=== PATIENT | male | born 1960 | race Hispanic/Latino ===

== ENCOUNTER 2018-08-06 02:12 | Inpatient (IN) | payer OTHER ==
[2018-08-06] MEDS ORDERED: Sodium Chloride 0.9% 1,000 ML IV STA ×2 (03:28→03:48)
[2018-08-06] MEDS ORDERED: Morphine 4 MG/ML VIAL IVP ONE ×3 (03:29→06:43)
[2018-08-06] MEDS ORDERED: Iohexol 240 (50 ml) PO ONE (03:30)
[2018-08-06] MEDS ORDERED: Iohexol 240 (50 ml) ONE (03:41)
[2018-08-06 03:42] LABS: BASO # 0.1 K/uL (0.0-0.2); BASO % 0.4 % (0.0-2.0); EOS # 0.5 K/uL (0.0-0.7); EOS % 2.8 % (0.0-4.0); HEMOGLOBIN 16.9 g/dL (12.0-18.0); LYMPH # 2.3 K/uL (1.0-4.3); LYMPH % 13.7 % (20.0-40.0); MEAN CELL VOLUME 92.1 fl (80.0-94.0); MEAN CORPUSCULAR HGB CONC 32.5 g/dL (33.0-37.0); MEAN PLATELET VOLUME 10.1 fl (7.2-11.7); MONO % 6.3 % (0.0-10.0); NEUT # 12.6 K/uL (1.8-7.0); NEUT % 76.8 % (50.0-75.0); NRBC % 0.1 % (0.0-0.0); RBC 5.63 Mil/uL (4.40-5.90); RED CELL DISTRIBUTION WIDTH 13.7 % (11.5-14.5); WHITE BLOOD COUNT 16.5 K/uL (4.8-10.8)
[2018-08-06 03:47] LABS: PROTHROMBIN TIME 11.1 Seconds (9.8-13.1)
[2018-08-06 03:50] LABS: PARTIAL THROMBOPLASTIN TIME 30.6 Seconds (25.6-37.1)
[2018-08-06 03:56] LABS: ALB/GLOB RATIO 1.2 (1.0-2.1); ALBUMIN 4.1 g/dL (3.5-5.0); ALT/SGPT 46 U/L (21-72); AST/SGOT 45 U/L (17-59); BLOOD UREA NITROGEN 29 mg/dl (9-20); GFR NON-AFRICAN AMERICAN 41
[2018-08-06] MEDS ORDERED: Morphine 4 MG/ML VIAL ONE ×2 (04:29→06:44)
[2018-08-06] MEDS ORDERED: Sodium Chloride 0.9% 50 ML IV ONE (05:29)
[2018-08-06] MEDS ORDERED: Iohexol 300 100 ML IJ ONE (05:29)
--- NOTE | 2018-08-06 06:29 | ED PDOC ---
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 Patient states pain is currently 7/10 and worsen with movement or change in position. He denies any fever, chills, vomiting, diarrhea, cough, or shortness of breath. PCP: none provided Past Medical History Reviewed: Historical Data, Nursing Documentation, Vital Signs Vital Signs: Last Vital Signs Temp 98.6 F 08/06/18 03:19 Pulse 60 08/06/18 04:39 Resp 18 08/06/18 04:39 BP 112/67 08/06/18 04:39 Pulse Ox 97 08/06/18 04:39 - Medical History PMH: Asthma, HTN - Surgical History Surgical History: Tonsillectomy - Family History Family History: States: Unknown Family Hx - Home Medications Home Medications: Ambulatory Orders Medication Instructions Recorded Albuterol Sulfate [Proair Hfa] 90 mcg PRN 08/06/18 RX: Lisinopril [Zestril] 10 mg PO DAILY 08/06/18 - Allergies Allergies/Adverse Reactions: Allergies Allergy/AdvReac Type Severity Reaction Status Date / Time No Known Allergies Allergy Verified 08/06/18 03:21 Review of Systems ROS Statement: Except As Marked, All Systems Reviewed And Found Negative Constitutional: Positive for: Weakness. Negative for: Fever, Chills Cardiovascular: Positive for: Chest Pain Respiratory: Negative for: Cough, Shortness of Breath Gastrointestinal: Positive for: Nausea, Abdominal Pain (upper). Negative for: Vomiting, Diarrhea Neurological: Positive for: Dizziness (lightheaded) Physical Exam - Reviewed Nursing Documentation Reviewed: Yes Vital Signs Reviewed: Yes - Physical Exam Appears: Positive for: Uncomfortable Head Exam: Positive for: ATRAUMATIC, NORMAL INSPECTION, NORMOCEPHALIC Skin: Positive for: Normal Color Eye Exam: Positive for: Normal appearance ENT: Positive for: Normal ENT Inspection Neck: Positive for: Normal Cardiovascular/Chest: Positive for: Regular Rate, Rhythm, Chest Non Tender Respiratory: Positive for: Normal Breath Sounds. Negative for: Wheezing, Respiratory Distress Gastrointestinal/Abdominal: Positive for: Soft, Tenderness (epigastric), Distended (mild) Back: Positive for: Normal Inspection. Negative for: L CVA Tenderness, R CVA Tenderness Extremity: Positive for: Normal ROM (upper/lower) Neurologic/Psych: Positive for: Alert, Oriented. Negative for: Motor/Sensory Deficits - Laboratory Results Result Diagrams: 08/06/18 03:30 08/06/18 03:30 - ECG O2 Sat by Pulse Oximetry: 97 (RA) Pulse Ox Interpretation: Normal Medical Decision Making Medical Decision Making: Initial Impression: 57 year old male with abdominal pain and disten tion. Initial Plan: * CT ABD/pelvis with PO and IV contrast * EKG * Labs * CXR * Morphine 4mg IVP * IV fluids * Omnipaque 240 50ml PO * Pepcid 20mg IV * Zofran 4mg IV * Accucheck Time: 0642 --CT ABD/pelvis FINDINGS: Bilateral basilar atelectatic pulmonary changes. Mild cardiomegaly. Large, hypodense pancreas. Peripancreatic inflammatory fat stranding. Mild hepatic steatosis. 2 nonobstructing left renal stones with the largest measuring 3 mm. Uncomplicated colonic diverticulosis. Mild constipation. Mild prostatomegaly. Mild thickening of the bladder, chronic. The liver is of uniform attenuation without mass or defect. There is no intra or extrahepatic biliary ductal dilatation. The spleen is normal. The gallbladder is within normal limits. There is no evidence of adrenal mass. Both kidneys demonstrate prompt and equal nephrograms. The kidneys are normal in size, shape and configuration. There is no evidence of renal or ureteral mass. No right renal or ureteral calculi are identified. There is no hydroureter or hydronephrosis. No evidence for appendicitis. There is no bowel wall thickening. No evidence for small or large bowel obstruction. There is no evidence of intrinsic or extrinsic bladder mass. Images of the lung bases show no evidence of pleural or parenchymal mass. There are no pleural effusions. The bony structures are free of lytic or blastic lesions. IMPRESSION: Bilateral basilar atelectatic pulmonary changes. Mild cardiomegaly. Large, hypodense pancreas. Peripancreatic inflammatory fat stranding. Mild hepatic steatosis. 2 nonobstructing left renal stones with the largest measuring 3 mm. Uncomplicated colonic diverticulosis. Mild constipation. Mild prostatomegaly. Mild thickening of the bladder, chronic. Time: 0700 --Patient is signed out to Dr. Alvarez, pending lipase results and re-evaluation. Scribe Attestation: Documented by Frances Menezes, acting as a scribe for Sadiq Tsang MD. Provider Scribe Attestation: All medical record entries made by the Scribe were at my direction and personally dictated by me. I have reviewed the chart and agree that the record accurately reflects my personal performance of the history, physical exam, medical decision making, and the department course for this patient. I have also personally directed, reviewed, and agree with the discharge instructions and disposition. Disposition - Clinical Impression Clinical Impression: Pancreatitis, Renal insufficiency - Disposition Disposition Time: 07:00 Condition: GUARDED Patient Signed Over To: Flako Alvarez
[2018-08-06] MEDS ORDERED: Lactated Ringer's 1,000 ML IV STA (06:46)
--- NOTE | 2018-08-06 07:21 | ED PDOC ---
- Laboratory Results Result Diagrams: 08/06/18 03:30 08/06/18 03:30 Interpretation Of Abn Labs: 16.5 wbc, lipase elevated, 29/1.7 bun/cr - ECG O2 Sat by Pulse Oximetry: 97 (RA) Pulse Ox Interpretation: Normal - CT Scan/US ct Other Rad Studies (CT/US): Read By Radiologist Other Rad Interpretation: pancreatic enlargement - Progress ED Course And Treament: 756: Will give pt. duoneb as he feels wheezes. Has hx of asthma. Dr. Armen sotelo paged for consult. 812: Spoke with Dr. Barnett. Will admit ICU. Spoke with Dr. Bailon. Will admit ICU. 907: Spoke with Dr. Bynum. Agrees with current care. No additional information. - Critical Care Total Time (In Min): 30 Documented Critical Care: Time excludes all time spent performint seperately billable procedures Medical Decision Making Medical Decision Making: Time: 0700 -- Patient with possible pancreatitis endorsed to me by Dr. Tsang, pending lipase, re-evaluation and possible ER disposition. Scribe Attestation: Documented by Bishop Singleton, acting as a scribe for Flako Alvarez MD. Provider Scribe Attestation: All medical record entries made by the Scribe were at my direction and personally dictated by me. I have reviewed the chart and agree that the record accurately reflects my personal performance of the history, physical exam, medical decision making, and the department course for this patient. I have also personally directed, reviewed, and agree with the discharge instructions and disposition. Disposition - Clinical Impression Clinical Impression: Pancreatitis, Renal insufficiency - POA Present On Arrival: None - Disposition Disposition: Admitted as In-Patient Disposition Time: 08:15 Condition: SERIOUS
[2018-08-06 07:51] LABS: LIPASE 30221 U/L (23-300)
[2018-08-06] MEDS ORDERED: Albuterol-Ipratrop 3 mg / 0.5 (3 ml) UD INH STA (07:53)
[2018-08-06] MEDS ORDERED: Albuterol-Ipratrop 3 mg / 0.5 (3 ml) UD ONE (07:56)
--- NOTE | 2018-08-06 08:59 | CARD ---
APPROVED REPORT Date of service: 08/06/2018 EKG Measurement Heart [id number] <Conclusion> Atrial fibrillation with slow ventricular response with a competing junctional pacemaker Abnormal ECG
--- NOTE | 2018-08-06 09:02 | CP.PCM.CON ---
History of Present Illness - History of Present Illness History of Present Illness: 57 YOM came to ER for abdominal pain for lasr 12-18 hours and found to have > 30,000 lipase lavel. Pt has h/o HTN, and CKD-2, otherwise no signficant PMG. He is not a drinker, drinks rarely/socially. He saw me in [facility] recently in [facility] for CKD-2 and HTN. He is in lisinopril and and synthroid. He also injects himself with testost erone I/M prep, twice a week. Pain has been contstant, dull, no radiation. He has nausea but no vomiting or diarrhea . Review of Systems - Review of Systems Systems not reviewed;Unavailable: Acuity of Condition - Constitutional Constitutional: As Per HPI - EENT Eyes: As Per HPI - Cardiovascular Cardiovascular: As Per HPI - Respiratory Respiratory: As Per HPI - Gastrointestinal Gastrointestinal: Abdominal Pain, Belching - Musculoskeletal Musculoskeletal: As Per HPI Past Patient History - Past Medical History & Family History Past Medical History?: Yes - Past Social History Smoking Status: Never Smoked Alcohol: Social Drugs: Denies - CARDIAC Hx Hypertension: Yes - PULMONARY Hx Asthma: Yes - RENAL Hx Chronic Kidney Disease: Yes - ENDOCRINE/METABOLIC Hx Hypothyroidism: Yes Other/Comment: takes testosterone replacement RX , I/M - GASTROINTESTINAL Hx Gastrointestinal Disorders: No - GENITOURINARY/GYNECOLOGICAL Hx Genitourinary Disorders: No - PSYCHIATRIC Hx Psychophysiologic Disorder: No Hx Substance Use: No - SURGICAL HISTORY Hx Tonsillectomy: Yes Meds Allergies/Adverse Reactions: Allergies Allergy/AdvReac Type Severity Reaction Status Date / Time No Known Allergies Allergy Verified 08/06/18 03:21 Physical Exam - Head Exam Head Exam: ATRAUMATIC, NORMAL INSPECTION - Eye Exam Eye Exam: Normal appearance - ENT Exam ENT Exam: Mucous Membranes Moist - Neck Exam Neck exam: Positive for: Normal Inspection - Respiratory Exam Respiratory Exam: NORMAL BREATHING PATTERN - Cardiovascular Exam Cardiovascular Exam: REGULAR RHYTHM - GI/Abdominal Exam GI & Abdominal Exam: Guarding, Tenderness - Rectal Exam Rectal Exam: Deferred Results - Vital Signs Recent Vital Signs: Last Vital Signs Temp 98.6 F 08/06/18 03:19 Pulse 64 08/06/18 07:50 Resp 19 08/06/18 07:50 BP 153/87 H 08/06/18 07:50 Pulse Ox 97 08/06/18 08:16 - Labs Result Diagrams: 08/06/18 03:30 08/06/18 03:30 Labs: Laboratory Results - last 24 hr 08/06/18 08/06/18 08/06/18 03:30 03:30 03:30 WBC 16.5 H RBC 5.63 Hgb 16.9 Hct 51.8 H MCV 92.1 MCH 30.0 MCHC 32.5 L RDW 13.7 Plt Count 276 MPV 10.1 Neut % (Auto) 76.8 H Lymph % (Auto) 13.7 L Turner % (Auto) 6.3 Eos % (Auto) 2.8 Baso % (Auto) 0.4 Neut # (Auto) 12.6 H Lymph # (Auto) 2.3 Turner # (Auto) 1.0 H Eos # (Auto) 0.5 Baso # (Auto) 0.1 PT 11.1 INR 1.0 APTT 30.6 Sodium 143 Potassium 4.8 Chloride 106 Carbon Dioxide 27 Anion Gap 15 BUN 29 H Creatinine 1.7 H Est GFR ( Amer) 50 Est GFR (Non-Af Amer) 41 Random Glucose 131 H Lactic Acid Calcium 10.0 Total Bilirubin 0.7 AST 45 ALT 46 Alkaline Phosphatase 31 L Troponin I < 0.0120 Total Protein 7.4 Albumin 4.1 Globulin 3.3 Albumin/Globulin Ratio 1.2 Lipase 10604 H Alcohol, Quantitative < 10 08/06/18 03:35 WBC RBC Hgb Hct MCV MCH MCHC RDW Plt Count MPV Neut % (Auto) Lymph % (Auto) Turner % (Auto) Eos % (Auto) Baso % (Auto) Neut # (Auto) Lymph # (Auto) Turner # (Auto) Eos # (Auto) Baso # (Auto) PT INR APTT Sodium Potassium Chloride Carbon Dioxide Anion Gap BUN Creatinine Est GFR ( Amer) Est GFR (Non-Af Amer) Random Glucose Lactic Acid 1.8 Calcium Total Bilirubin AST ALT Alkaline Phosphatase Troponin I Total Protein Albumin Globulin Albumin/Globulin Ratio Lipase Alcohol, Quantitative Assessment & Plan - Assessment and Plan (Free Text) Assessment: ACUTE Pancreatitis : cause not know, could be related to I/M testoseteron prepararion he injects himself twice weekly. HTN Hypothyroidism JEFF: pre-renal azotemia CKD-3 Plan: Hemodynamically stable but duet to very high lipase level and risk for complication/shock, will admit to ICU for 24 hour, pending GI evaluation. Will wait for official reading of CT abdomen to decide about surgical consult Admit to ICD IVF: RL at 100 cc/h IV dilaudid for pain Empirical antibiotics: Cefepime and flagyl. GI consult.
[2018-08-06] MEDS ORDERED: Lactated Ringer's 1,000 ML IV SCH (09:30)
[2018-08-06 09:57] LABS: BARBITURATES, UR NEGATIVE (NEGATIVE); BENZODIAZEPINES, UR NEGATIVE (NEGATIVE); OPIATES, UR POSITIVE (NEGATIVE); PHENCYCLIDINE, UR NEGATIVE (NEGATIVE)
--- NOTE | 2018-08-06 10:32 | CT ---
Date of service: 08/06/2018 PROCEDURE: CT Abdomen and Pelvis with contrast HISTORY: abd pain COMPARISON: None. TECHNIQUE: Contrast dose: Radiation dose: Total exam DLP = 820.53 mGy-cm. This CT exam was performed using one or more of the following dose reduction techniques: Automated exposure control, adjustment of the mA and/or kV according to patient size, and/or use of iterative reconstruction technique. FINDINGS: LOWER THORAX: Unremarkable. LIVER: Unremarkable. No gross lesion or ductal dilatation. GALLBLADDER AND BILE DUCTS: Unremarkable. PANCREAS: Peripancreatic inflammation and hypertrophy consistent with acute pancreatitis. SPLEEN: Unremarkable. ADRENALS: Unremarkable. No mass. KIDNEYS AND URETERS: Two nonobstructive left renal calculi measuring up to 3 millimeters. VASCULATURE: Unremarkable. No aortic aneurysm. No aortic atherosclerotic calcification or mural plaque present. BOWEL: Unremarkable. No obstruction. No gross mural thickening. APPENDIX: Normal appendix. PERITONEUM: Unremarkable. No free fluid. No free air. LYMPH NODES: Unremarkable. No enlarged lymph nodes. BLADDER: Unremarkable. REPRODUCTIVE: Unremarkable. BONES: No acute fracture. OTHER FINDINGS: None. IMPRESSION: Acute pancreatitis. Left nephrolithiasis.
--- NOTE | 2018-08-06 10:46 | RAD ---
Date of service: 08/06/2018 HISTORY: chest pain COMPARISON: No prior. FINDINGS: LUNGS: No active pulmonary disease. PLEURA: No significant pleural effusion identified, no pneumothorax apparent. CARDIOVASCULAR: No aortic atherosclerotic calcification present. Normal cardiac size. No pulmonary vascular congestion. OSSEOUS STRUCTURES: No significant abnormalities. VISUALIZED UPPER ABDOMEN: Normal. OTHER FINDINGS: None. IMPRESSION: No active disease.
[2018-08-06] MEDS ORDERED: Labetalol 5mg/ml (4ml) IVP ONE (14:15)
[2018-08-06] MEDS: metroNIDAZOLE 500mg/100ml NS 100 ML IVPB SCH (16:33)
[2018-08-06] MEDS: Albuterol-Ipratrop 3 mg / 0.5 (3 ml) UD INH PRN (17:59)
--- NOTE | 2018-08-06 20:34 | CP.PCM.HP ---
History of Present Illness - History of Present Illness History of Present Illness: 57 h/o HTN, hypothyroidism, asthma and CKD-2 admitted to ICU due to pancreatitis. Patient has had abdominal pain for 1 day. patient was seen and examined at bedside. states occurred suddenly. no triggers. no hsitory of etoh use. denies drug use. continues with abdominal pain though improved. no other complaints at this time. Present on Admission - Present on Admission Any Indicators Present on Admission: No Review of Systems - Review of Systems All systems: reviewed and no additional remarkable complaints except (mentioned above) Past Patient History - Past Medical History & Family History Past Medical History?: Yes - Past Social History Smoking Status: Never Smoked - CARDIAC Hx Cardiac Disorders: Yes - PULMONARY Hx Respiratory Disorders: Yes - RENAL Hx Chronic Kidney Disease: Yes - ENDOCRINE/METABOLIC Hx Hypothyroidism: Yes Other/Comment: takes testosterone replacement RX , I/M - HEMATOLOGICAL/ONCOLOGICAL Hx AIDS: No Hx Human Immunodeficiency Virus (HIV): No - MUSCULOSKELETAL/RHEUMATOLOGICAL Hx Falls: No - GASTROINTESTINAL Hx Gastrointestinal Disorders: No - GENITOURINARY/GYNECOLOGICAL Hx Genitourinary Disorders: No - PSYCHIATRIC Hx Psychophysiologic Disorder: No Hx Substance Use: No - SURGICAL HISTORY Hx Tonsillectomy: Yes Meds Allergies/Adverse Reactions: Allergies Allergy/AdvReac Type Severity Reaction Status Date / Time No Known Allergies Allergy Verified 08/06/18 03:21 Physical Exam - Constitutional Appears: Non-toxic - Head Exam Head Exam: NORMAL INSPECTION - Eye Exam Eye Exam: Normal appearance - Neck Exam Neck exam: Positive for: Normal Inspection - Respiratory Exam Respiratory Exam: Clear to Auscultation Bilateral, NORMAL BREATHING PATTERN - Cardiovascular Exam Cardiovascular Exam: +S1, +S2 - GI/Abdominal Exam GI & Abdominal Exam: Normal Bowel Sounds, Soft, Tenderness Results - Vital Signs Recent Vital Signs: Last Vital Signs Temp 97.9 F 08/06/18 16:00 Pulse 65 08/06/18 18:00 Resp 23 08/06/18 18:00 BP 172/100 H 08/06/18 18:00 Pulse Ox 97 08/06/18 18:00 - Labs Result Diagrams: 08/06/18 03:30 08/06/18 03:30 Labs: Laboratory Results - last 24 hr 08/06/18 08/06/18 08/06/18 03:24 03:30 03:30 WBC 16.5 H RBC 5.63 Hgb 16.9 Hct 51.8 H MCV 92.1 MCH 30.0 MCHC 32.5 L RDW 13.7 Plt Count 276 MPV 10.1 Neut % (Auto) 76.8 H Lymph % (Auto) 13.7 L Amelia % (Auto) 6.3 Eos % (Auto) 2.8 Baso % (Auto) 0.4 Neut # (Auto) 12.6 H Lymph # (Auto) 2.3 Amelia # (Auto) 1.0 H Eos # (Auto) 0.5 Baso # (Auto) 0.1 PT INR APTT Sodium 143 Potassium 4.8 Chloride 106 Carbon Dioxide 27 Anion Gap 15 BUN 29 H Creatinine 1.7 H Est GFR ( Amer) 50 Est GFR (Non-Af Amer) 41 POC Glucose (mg/dL) 102 Random Glucose 131 H Lactic Acid Calcium 10.0 Total Bilirubin 0.7 AST 45 ALT 46 Alkaline Phosphatase 31 L Troponin I < 0.0120 Total Protein 7.4 Albumin 4.1 Globulin 3.3 Albumin/Globulin Ratio 1.2 Lipase 54952 H Urine Opiates Screen Urine Methadone Screen Ur Barbiturates Screen Ur Phencyclidine Scrn Ur Amphetamines Screen U Benzodiazepines Scrn U Oth Cocaine Metabols U Cannabinoids Screen Alcohol, Quantitative < 10 08/06/18 08/06/18 08/06/18 03:30 03:35 08:49 WBC RBC Hgb Hct MCV MCH MCHC RDW Plt Count MPV Neut % (Auto) Lymph % (Auto) Amelia % (Auto) Eos % (Auto) Baso % (Auto) Neut # (Auto) Lymph # (Auto) Amelia # (Auto) Eos # (Auto) Baso # (Auto) PT 11.1 INR 1.0 APTT 30.6 Sodium Potassium Chloride Carbon Dioxide Anion Gap BUN Creatinine Est GFR ( Amer) Est GFR (Non-Af Amer) POC Glucose (mg/dL) 135 H Random Glucose Lactic Acid 1.8 Calcium Total Bilirubin AST ALT Alkaline Phosphatase Troponin I Total Protein Albumin Globulin Albumin/Globulin Ratio Lipase Urine Opiates Screen Urine Methadone Screen Ur Barbiturates Screen Ur Phencyclidine Scrn Ur Amphetamines Screen U Benzodiazepines Scrn U Oth Cocaine Metabols U Cannabinoids Screen Alcohol, Quantitative 08/06/18 09:04 WBC RBC Hgb Hct MCV MCH MCHC RDW Plt Count MPV Neut % (Auto) Lymph % (Auto) Amelia % (Auto) Eos % (Auto) Baso % (Auto) Neut # (Auto) Lymph # (Auto) Amelia # (Auto) Eos # (Auto) Baso # (Auto) PT INR APTT Sodium Potassium Chloride Carbon Dioxide Anion Gap BUN Creatinine Est GFR ( Amer) Est GFR (Non-Af Amer) POC Glucose (mg/dL) Random Glucose Lactic Acid Calcium Total Bilirubin AST ALT Alkaline Phosphatase Troponin I Total Protein Albumin Globulin Albumin/Globulin Ratio Lipase Urine Opiates Screen Positive H Urine Methadone Screen Negative Ur Barbiturates Screen Negative Ur Phencyclidine Scrn Negative Ur Amphetamines Screen Negative U Benzodiazepines Scrn Negative U Oth Cocaine Metabols Negative U Cannabinoids Screen Negative Alcohol, Quantitative Assessment & Plan - Assessment and Plan (Free Text) Assessment: 57 h/o HTN, hypothyroidism, asthma and CKD-2 admitted to ICU due to pancreatitis. plan trend lipase (30k initial) trend wbc monitor vitals increase IVF to 200cc/hr c/w IV abx emperically pending GI consultation
[2018-08-06] MEDS: Cefepime 1 GM in Sodium Chloride 0.9% 100 ML IVPB SCH (20:52)
[2018-08-06] MEDS: Lactated Ringer's 1,000 ML IV SCH (20:53)
--- NOTE | 2018-08-06 23:06 | CP.PCM.CON ---
History of Present Illness - History of Present Illness History of Present Illness: 57 yo male previously well admitted with sudden onset of pain since yesterday evening. No h/o alcohol use. He states that he takes multiple nutrtional supplements. Review of Systems - Constitutional Constitutional: absent: Chills - EENT Eyes: absent: Blurred Vision Ears: absent: Decreased Hearing Nose/Mouth/Throat: absent: Epistaxis - Cardiovascular Cardiovascular: absent: Chest Pain - Respiratory Respiratory: absent: Cough - Gastrointestinal Gastrointestinal: As Per HPI - Genitourinary Genitourinary: absent: Change in Urinary Stream Past Patient History - Past Medical History & Family History Past Medical History?: Yes - Past Social History Smoking Status: Never Smoked - CARDIAC Hx Cardiac Disorders: Yes - PULMONARY Hx Respiratory Disorders: Yes - RENAL Hx Chronic Kidney Disease: Yes - ENDOCRINE/METABOLIC Hx Hypothyroidism: Yes Other/Comment: takes testosterone replacement RX , I/M - HEMATOLOGICAL/ONCOLOGICAL Hx AIDS: No Hx Human Immunodeficiency Virus (HIV): No - MUSCULOSKELETAL/RHEUMATOLOGICAL Hx Falls: No - GASTROINTESTINAL Hx Gastrointestinal Disorders: No - GENITOURINARY/GYNECOLOGICAL Hx Genitourinary Disorders: No - PSYCHIATRIC Hx Psychophysiologic Disorder: No Hx Substance Use: No - SURGICAL HISTORY Hx Tonsillectomy: Yes Meds Allergies/Adverse Reactions: Allergies Allergy/AdvReac Type Severity Reaction Status Date / Time No Known Allergies Allergy Verified 08/06/18 03:21 - Medications Medications: Current Medications Albuterol/Ipratropium (Duoneb 3 Mg/0.5 Mg (3 Ml) Ud) 3 ml INH RQ6 PRN PRN Reason: Shortness of Breath Last Admin: 08/06/18 17:59 Dose: 3 ml Amlodipine Besylate (Norvasc) 5 mg PO BID ISMA Last Admin: 08/06/18 16:35 Dose: 5 mg Enoxaparin Sodium (Lovenox) 40 mg SC DAILY ISMA; Protocol Hydromorphone HCl (Dilaudid) 1 mg IVP Q4 PRN PRN Reason: Pain, severe (8-10) Last Admin: 08/06/18 22:33 Dose: 1 mg Cefepime HCl 1 gm/ Sodium (Chloride) 100 mls @ 100 mls/hr IVPB Q12 ISMA; Protocol Stop: 08/13/18 00:00 Last Admin: 08/06/18 20:52 Dose: 100 mls/hr Metronidazole (Flagyl 500mg/100ml Ns) 100 mls @ 100 mls/hr IVPB Q8 ISMA; Protocol Last Admin: 08/06/18 16:33 Dose: 100 mls/hr Lactated Ringer's (Lactated Ringer's) 1,000 mls @ 200 mls/hr IV .Q5H ISMA Last Admin: 08/06/18 20:53 Dose: 200 mls/hr Ondansetron HCl (Zofran Inj) 4 mg IVP Q6 PRN PRN Reason: Nausea/Vomiting Last Admin: 08/06/18 12:57 Dose: 4 mg Pantoprazole Sodium (Protonix Inj) 40 mg IVP DAILY [facility] Last Admin: 08/06/18 22:01 Dose: 40 mg Physical Exam - Constitutional Appears: In Acute Distress - Head Exam Head Exam: ATRAUMATIC - Eye Exam Eye Exam: Normal appearance - ENT Exam ENT Exam: Mucous Membranes Moist - Neck Exam Neck exam: Positive for: Full Rom - Respiratory Exam Respiratory Exam: Clear to Auscultation Bilateral - Cardiovascular Exam Cardiovascular Exam: REGULAR RHYTHM, +S1, +S2 - GI/Abdominal Exam GI & Abdominal Exam: Normal Bowel Sounds, Soft, Tenderness Additional comments: marked epigastric tenderness Results - Vital Signs Recent Vital Signs: Last Vital Signs Temp 98.8 F 08/06/18 20:00 Pulse 78 08/06/18 22:00 Resp 18 08/06/18 22:00 BP 165/100 H 08/06/18 22:00 Pulse Ox 93 L 08/06/18 22:00 - Labs Result Diagrams: 08/06/18 03:30 08/06/18 03:30 Labs: Laboratory Results - last 24 hr 08/06/18 08/06/18 08/06/18 03:24 03:30 03:30 WBC 16.5 H RBC 5.63 Hgb 16.9 Hct 51.8 H MCV 92.1 MCH 30.0 MCHC 32.5 L RDW 13.7 Plt Count 276 MPV 10.1 Neut % (Auto) 76.8 H Lymph % (Auto) 13.7 L [place] % (Auto) 6.3 Eos % (Auto) 2.8 Baso % (Auto) 0.4 Neut # (Auto) 12.6 H Lymph # (Auto) 2.3 [place] # (Auto) 1.0 H Eos # (Auto) 0.5 Baso # (Auto) 0.1 PT INR APTT Sodium 143 Potassium 4.8 Chloride 106 Carbon Dioxide 27 Anion Gap 15 BUN 29 H Creatinine 1.7 H Est GFR ( Amer) 50 Est GFR (Non-Af Amer) 41 POC Glucose (mg/dL) 102 Random Glucose 131 H Lactic Acid Calcium 10.0 Total Bilirubin 0.7 AST 45 ALT 46 Alkaline Phosphatase 31 L Troponin I < 0.0120 Total Protein 7.4 Albumin 4.1 Globulin 3.3 Albumin/Globulin Ratio 1.2 Lipase 98542 H Urine Opiates Screen Urine Methadone Screen Ur Barbiturates Screen Ur Phencyclidine Scrn Ur Amphetamines Screen U Benzodiazepines Scrn U Oth Cocaine Metabols U Cannabinoids Screen Alcohol, Quantitative < 10 08/06/18 08/06/18 08/06/18 03:30 03:35 08:49 WBC RBC Hgb Hct MCV MCH MCHC RDW Plt Count MPV Neut % (Auto) Lymph % (Auto) [place] % (Auto) Eos % (Auto) Baso % (Auto) Neut # (Auto) Lymph # (Auto) [place] # (Auto) Eos # (Auto) Baso # (Auto) PT 11.1 INR 1.0 APTT 30.6 Sodium Potassium Chloride Carbon Dioxide Anion Gap BUN Creatinine Est GFR ( Amer) Est GFR (Non-Af Amer) POC Glucose (mg/dL) 135 H Random Glucose Lactic Acid 1.8 Calcium Total Bilirubin AST ALT Alkaline Phosphatase Troponin I Total Protein Albumin Globulin Albumin/Globulin Ratio Lipase Urine Opiates Screen Urine Methadone Screen Ur Barbiturates Screen Ur Phencyclidine Scrn Ur Amphetamines Screen U Benzodiazepines Scrn U Oth Cocaine Metabols U Cannabinoids Screen Alcohol, Quantitative 08/06/18 09:04 WBC RBC Hgb Hct MCV MCH MCHC RDW Plt Count MPV Neut % (Auto) Lymph % (Auto) [place] % (Auto) Eos % (Auto) Baso % (Auto) Neut # (Auto) Lymph # (Auto) [place] # (Auto) Eos # (Auto) Baso # (Auto) PT INR APTT Sodium Potassium Chloride Carbon Dioxide Anion Gap BUN Creatinine Est GFR ( Amer) Est GFR (Non-Af Amer) POC Glucose (mg/dL) Random Glucose Lactic Acid Calcium Total Bilirubin AST ALT Alkaline Phosphatase Troponin I Total Protein Albumin Globulin Albumin/Globulin Ratio Lipase Urine Opiates Screen Positive H Urine Methadone Screen Negative Ur Barbiturates Screen Negative Ur Phencyclidine Scrn Negative Ur Amphetamines Screen Negative U Benzodiazepines Scrn Negative U Oth Cocaine Metabols Negative U Cannabinoids Screen Negative Alcohol, Quantitative Assessment & Plan (1) Pancreatitis Assessment and Plan: Severe acute pancreatitis. Agree with vigorous IV fluids and adequate analgesia. Careful monitoring for signs of clinical deterioration. Status: Acute
[2018-08-07] MEDS: Albuterol-Ipratrop 3 mg / 0.5 (3 ml) UD INH PRN ×2 (00:36→18:23)
[2018-08-07] MEDS: metroNIDAZOLE 500mg/100ml NS 100 ML IVPB SCH ×4 (00:48→16:06)
[2018-08-07] MEDS: Lactated Ringer's 1,000 ML IV SCH ×5 (02:08→23:59)
[2018-08-07] MEDS ORDERED: Levothyroxine 88 MCG TAB PO SCH (06:30)
[2018-08-07 06:43] LABS: BASO # 0.1 K/uL (0.0-0.2); BASO % 0.3 % (0.0-2.0); HEMOGLOBIN 15.1 g/dL (12.0-18.0); LYMPH # 0.8 K/uL (1.0-4.3); LYMPH % 4.1 % (20.0-40.0); MEAN CELL VOLUME 89.7 fl (80.0-94.0); MEAN CORPUSCULAR HEMOGLOBIN 29.5 pg (27.0-31.0); MEAN CORPUSCULAR HGB CONC 32.9 g/dL (33.0-37.0); MEAN PLATELET VOLUME 10.5 fl (7.2-11.7); MONO # 1.3 K/uL (0.0-0.8); MONO % 6.6 % (0.0-10.0); NEUT # 17.4 K/uL (1.8-7.0); PLATELET COUNT 227 K/uL (130-400); RBC 5.13 Mil/uL (4.40-5.90); RED CELL DISTRIBUTION WIDTH 13.9 % (11.5-14.5); WHITE BLOOD COUNT 19.5 K/uL (4.8-10.8)
[2018-08-07 06:58] LABS: ALB/GLOB RATIO 1.2 (1.0-2.1); ALBUMIN 3.4 g/dL (3.5-5.0); ALT/SGPT 40 U/L (21-72); AMYLASE 646 U/L (30-110); AST/SGOT 29 U/L (17-59); BLOOD UREA NITROGEN 25 mg/dl (9-20); CALCIUM 8.4 mg/dL (8.4-10.2); GFR NON-AFRICAN AMERICAN > 60; HDL CHOLESTEROL 43 MG/DL (30-70)
[2018-08-07 07:09] LABS: LDL CHOLESTEROL 121 mg/dL (0-129)
[2018-08-07 07:12] LABS: LIPASE 2771 U/L (23-300)
--- NOTE | 2018-08-07 07:44 | CP.CCUPN ---
CCU Subjective - Physician Review Events Since Last Encounter (Free Text): 08/07/18 07:41 Alert and oriented, BP is well controlled, never had low BP and hemodynamically has been stable, abdominal pain is also better on current meds. Lipase is 2700, was 30K yesterday, although clinically the patient did not look like someone with 30 K lipase level, was not that sick looking. Renal function also improved to baseline. WBC is still high 19K today, were 18 K yesterday. Has been in SR. Will transfer to med-surg today. CCU Objective - Vital Signs / Intake & Output Vital Signs (Last 4 hours): Vital Signs Temp Pulse Resp BP Pulse Ox 08/07/18 06:00 84 21 153/87 H 92 L 08/07/18 04:00 98.6 F 84 18 151/90 H 93 L Intake and Output (Last 8hrs): Intake & Output 08/06/18 08/07/18 08/07/18 23:59 06:59 14:59 Intake Total Output Total Balance Intake: IV Intake, Piggyback Oral Output: Urine Urine, Voided Other: # Voids Urine, Voided - Physical Exam Narrative Physical Exam (Free Text): 08/07/18 07:44 P/E Neck: No JVD Lungs: No ronchi, crackles Abdomen: soft but has mild generelized tenderness, BS ve Ext: no edema Hear: No gallop - Medications Active Medications: Active Medications Generic Name Dose Route Start Last Admin Trade Name Freq PRN Reason Stop Dose Admin Albuterol/Ipratropium 3 ml 08/06/18 17:35 08/07/18 00:36 Duoneb 3 Mg/0.5 Mg (3 Ml) Ud INH 3 ml RQ6 PRN Administration Shortness of Breath Amlodipine Besylate 5 mg 08/06/18 17:00 08/06/18 16:35 Norvasc PO 5 mg BID ISMA Administration Enoxaparin Sodium 40 mg 08/07/18 09:00 Lovenox SC DAILY ISMA Protocol Hydromorphone HCl 1 mg 08/06/18 09:21 08/07/18 05:47 Dilaudid IVP 1 mg Q4 PRN Administration Pain, severe (8-10) Cefepime HCl 1 gm/ Sodium 100 mls @ 100 mls/hr 08/06/18 21:00 08/06/18 20:52 Chloride IVPB 08/13/18 00:00 100 mls/hr Q12 ISMA Administration Protocol Metronidazole 100 mls @ 100 mls/hr 08/06/18 17:00 08/07/18 01:30 EDT Flagyl 500mg/100ml Ns IVPB Not Given Q8 ISMA Protocol Lactated Ringer's 1,000 mls @ 200 mls/hr 08/06/18 20:45 08/07/18 06:53 Lactated Ringer's IV Not Given .Q5H ISMA Ondansetron HCl 4 mg 08/06/18 09:22 08/06/18 12:57 Zofran Inj IVP 4 mg Q6 PRN Administration Nausea/Vomiting Pantoprazole Sodium 40 mg 08/07/18 09:00 08/06/18 22:01 Protonix Inj IVP 40 mg DAILY ISMA Administration - Patient Studies Lab Studies: Lab Studies 08/07/18 08/07/18 08/07/18 Range/Units 05:30 05:30 05:30 WBC 19.5 H (4.8-10.8) K/uL RBC 5.13 (4.40-5.90) Mil/uL Hgb 15.1 (12.0-18.0) g/dL Hct 46.1 (35.0-51.0) % MCV 89.7 D (80.0-94.0) fl MCH 29.5 (27.0-31.0) pg MCHC 32.9 L (33.0-37.0) g/dL RDW 13.9 (11.5-14.5) % Plt Count 227 (130-400) K/uL MPV 10.5 (7.2-11.7) fl Neut % (Auto) 89.0 H (50.0-75.0) % Lymph % (Auto) 4.1 L (20.0-40.0) % [place] % (Auto) 6.6 (0.0-10.0) % Eos % (Auto) 0.0 (0.0-4.0) % Baso % (Auto) 0.3 (0.0-2.0) % Neut # (Auto) 17.4 H (1.8-7.0) K/uL Lymph # (Auto) 0.8 L (1.0-4.3) K/uL [place] # (Auto) 1.3 H (0.0-0.8) K/uL Eos # (Auto) 0.0 (0.0-0.7) K/uL Baso # (Auto) 0.1 (0.0-0.2) K/uL Sodium (132-148) mmol/l Potassium (3.6-5.0) MMOL/L Chloride (98-107) mmol/L Carbon Dioxide (22-30) mmol/L Anion Gap (10-20) BUN (9-20) mg/dl Creatinine (0.8-1.5) mg/dl Est GFR ( Amer) Est GFR (Non-Af Amer) POC Glucose (mg/dL) (65-110) mg/dL Random Glucose (75-110) mg/dL Calcium (8.4-10.2) mg/dL Total Bilirubin (0.2-1.3) mg/dl AST (17-59) U/L ALT (21-72) U/L Alkaline Phosphatase (38-126) U/L Total Protein (6.3-8.2) G/DL Albumin (3.5-5.0) g/dL Globulin (2.2-3.9) gm/dL Albumin/Globulin Ratio (1.0-2.1) Triglycerides 38 (0-149) mg/DL Cholesterol 157 (0-199) mg/dL LDL Cholesterol Direct 121 (0-129) mg/dL HDL Cholesterol 43 (30-70) MG/DL Amylase (30-110) U/L Lipase (23-300) U/L TSH 3rd Generation 1.01 (0.46-4.68) mIU/ML Urine Opiates Screen (NEGATIVE) Urine Methadone Screen (NEGATIVE) Ur Barbiturates Screen (NEGATIVE) Ur Phencyclidine Scrn (NEGATIVE) Ur Amphetamines Screen (NEGATIVE) U Benzodiazepines Scrn (NEGATIVE) U Oth Cocaine Metabols (NEGATIVE) U Cannabinoids Screen (NEGATIVE) 08/07/18 08/06/18 08/06/18 Range/Units 05:30 09:04 08:49 WBC (4.8-10.8) K/uL RBC (4.40-5.90) Mil/uL Hgb (12.0-18.0) g/dL Hct (35.0-51.0) % MCV (80.0-94.0) fl MCH (27.0-31.0) pg MCHC (33.0-37.0) g/dL RDW (11.5-14.5) % Plt Count (130-400) K/uL MPV (7.2-11.7) fl Neut % (Auto) (50.0-75.0) % Lymph % (Auto) (20.0-40.0) % [place] % (Auto) (0.0-10.0) % Eos % (Auto) (0.0-4.0) % Baso % (Auto) (0.0-2.0) % Neut # (Auto) (1.8-7.0) K/uL Lymph # (Auto) (1.0-4.3) K/uL [place] # (Auto) (0.0-0.8) K/uL Eos # (Auto) (0.0-0.7) K/uL Baso # (Auto) (0.0-0.2) K/uL Sodium 139 (132-148) mmol/l Potassium 4.2 (3.6-5.0) MMOL/L Chloride 103 (98-107) mmol/L Carbon Dioxide 29 (22-30) mmol/L Anion Gap 11 (10-20) BUN 25 H (9-20) mg/dl Creatinine 1.2 (0.8-1.5) mg/dl Est GFR ( Amer) > 60 Est GFR (Non-Af Amer) > 60 POC Glucose (mg/dL) 135 H (65-110) mg/dL Random Glucose 102 (75-110) mg/dL Calcium 8.4 (8.4-10.2) mg/dL Total Bilirubin 1.1 (0.2-1.3) mg/dl AST 29 (17-59) U/L ALT 40 (21-72) U/L Alkaline Phosphatase 24 L D (38-126) U/L Total Protein 6.3 (6.3-8.2) G/DL Albumin 3.4 L (3.5-5.0) g/dL Globulin 2.9 (2.2-3.9) gm/dL Albumin/Globulin Ratio 1.2 (1.0-2.1) Triglycerides (0-149) mg/DL Cholesterol (0-199) mg/dL LDL Cholesterol Direct (0-129) mg/dL HDL Cholesterol (30-70) MG/DL Amylase 646 H (30-110) U/L Lipase 2771 H (23-300) U/L TSH 3rd Generation (0.46-4.68) mIU/ML Urine Opiates Screen Positive H (NEGATIVE) Urine Methadone Screen Negative (NEGATIVE) Ur Barbiturates Screen Negative (NEGATIVE) Ur Phencyclidine Scrn Negative (NEGATIVE) Ur Amphetamines Screen Negative (NEGATIVE) U Benzodiazepines Scrn Negative (NEGATIVE) U Oth Cocaine Metabols Negative (NEGATIVE) U Cannabinoids Screen Negative (NEGATIVE) 08/06/18 Range/Units 03:24 WBC (4.8-10.8) K/uL RBC (4.40-5.90) Mil/uL Hgb (12.0-18.0) g/dL Hct (35.0-51.0) % MCV (80.0-94.0) fl MCH (27.0-31.0) pg MCHC (33.0-37.0) g/dL RDW (11.5-14.5) % Plt Count (130-400) K/uL MPV (7.2-11.7) fl Neut % (Auto) (50.0-75.0) % Lymph % (Auto) (20.0-40.0) % [place] % (Auto) (0.0-10.0) % Eos % (Auto) (0.0-4.0) % Baso % (Auto) (0.0-2.0) % Neut # (Auto) (1.8-7.0) K/uL Lymph # (Auto) (1.0-4.3) K/uL [place] # (Auto) (0.0-0.8) K/uL Eos # (Auto) (0.0-0.7) K/uL Baso # (Auto) (0.0-0.2) K/uL Sodium (132-148) mmol/l Potassium (3.6-5.0) MMOL/L Chloride (98-107) mmol/L Carbon Dioxide (22-30) mmol/L Anion Gap (10-20) BUN (9-20) mg/dl Creatinine (0.8-1.5) mg/dl Est GFR ( Amer) Est GFR (Non-Af Amer) POC Glucose (mg/dL) 102 (65-110) mg/dL Random Glucose (75-110) mg/dL Calcium (8.4-10.2) mg/dL Total Bilirubin (0.2-1.3) mg/dl AST (17-59) U/L ALT (21-72) U/L Alkaline Phosphatase (38-126) U/L Total Protein (6.3-8.2) G/DL Albumin (3.5-5.0) g/dL Globulin (2.2-3.9) gm/dL Albumin/Globulin Ratio (1.0-2.1) Triglycerides (0-149) mg/DL Cholesterol (0-199) mg/dL LDL Cholesterol Direct (0-129) mg/dL HDL Cholesterol (30-70) MG/DL Amylase (30-110) U/L Lipase (23-300) U/L TSH 3rd Generation (0.46-4.68) mIU/ML Urine Opiates Screen (NEGATIVE) Urine Methadone Screen (NEGATIVE) Ur Barbiturates Screen (NEGATIVE) Ur Phencyclidine Scrn (NEGATIVE) Ur Amphetamines Screen (NEGATIVE) U Benzodiazepines Scrn (NEGATIVE) U Oth Cocaine Metabols (NEGATIVE) U Cannabinoids Screen (NEGATIVE) Laboratory Results - last 24 hr 08/06/18 08/06/18 08/06/18 03:24 08:49 09:04 WBC RBC Hgb Hct MCV MCH MCHC RDW Plt Count MPV Neut % (Auto) Lymph % (Auto) [place] % (Auto) Eos % (Auto) Baso % (Auto) Neut # (Auto) Lymph # (Auto) [place] # (Auto) Eos # (Auto) Baso # (Auto) Sodium Potassium Chloride Carbon Dioxide Anion Gap BUN Creatinine Est GFR ( Amer) Est GFR (Non-Af Amer) POC Glucose (mg/dL) 102 135 H Random Glucose Calcium Total Bilirubin AST ALT Alkaline Phosphatase Total Protein Albumin Globulin Albumin/Globulin Ratio Triglycerides Cholesterol LDL Cholesterol Direct HDL Cholesterol Amylase Lipase TSH 3rd Generation Urine Opiates Screen Positive H Urine Methadone Screen Negative Ur Barbiturates Screen Negative Ur Phencyclidine Scrn Negative Ur Amphetamines Screen Negative U Benzodiazepines Scrn Negative U Oth Cocaine Metabols Negative U Cannabinoids Screen Negative 08/07/18 08/07/18 08/07/18 05:30 05:30 05:30 WBC 19.5 H RBC 5.13 Hgb 15.1 Hct 46.1 MCV 89.7 D MCH 29.5 MCHC 32.9 L RDW 13.9 Plt Count 227 MPV 10.5 Neut % (Auto) 89.0 H Lymph % (Auto) 4.1 L [place] % (Auto) 6.6 Eos % (Auto) 0.0 Baso % (Auto) 0.3 Neut # (Auto) 17.4 H Lymph # (Auto) 0.8 L [place] # (Auto) 1.3 H Eos # (Auto) 0.0 Baso # (Auto) 0.1 Sodium 139 Potassium 4.2 Chloride 103 Carbon Dioxide 29 Anion Gap 11 BUN 25 H Creatinine 1.2 Est GFR ( Amer) > 60 Est GFR (Non-Af Amer) > 60 POC Glucose (mg/dL) Random Glucose 102 Calcium 8.4 Total Bilirubin 1.1 AST 29 ALT 40 Alkaline Phosphatase 24 L D Total Protein 6.3 Albumin 3.4 L Globulin 2.9 Albumin/Globulin Ratio 1.2 Triglycerides Cholesterol LDL Cholesterol Direct HDL Cholesterol Amylase 646 H Lipase 2771 H TSH 3rd Generation 1.01 Urine Opiates Screen Urine Methadone Screen Ur Barbiturates Screen Ur Phencyclidine Scrn Ur Amphetamines Screen U Benzodiazepines Scrn U Oth Cocaine Metabols U Cannabinoids Screen 08/07/18 05:30 WBC RBC Hgb Hct MCV MCH MCHC RDW Plt Count MPV Neut % (Auto) Lymph % (Auto) [place] % (Auto) Eos % (Auto) Baso % (Auto) Neut # (Auto) Lymph # (Auto) [place] # (Auto) Eos # (Auto) Baso # (Auto) Sodium Potassium Chloride Carbon Dioxide Anion Gap BUN Creatinine Est GFR ( Amer) Est GFR (Non-Af Amer) POC Glucose (mg/dL) Random Glucose Calcium Total Bilirubin AST ALT Alkaline Phosphatase Total Protein Albumin Globulin Albumin/Globulin Ratio Triglycerides 38 Cholesterol 157 LDL Cholesterol Direct 121 HDL Cholesterol 43 Amylase Lipase TSH 3rd Generation Urine Opiates Screen Urine Methadone Screen Ur Barbiturates Screen Ur Phencyclidine Scrn Ur Amphetamines Screen U Benzodiazepines Scrn U Oth Cocaine Metabols U Cannabinoids Screen Fingerstick Blood Sugar Results: 135 Critical Care Progress Note - Nutrition Nutrition: Nutrition Category Date Time Status NPO Diet [DIET] Diets 08/06/18 Dinner Active Assessment/Plan - Assessment and Plan (Free Text) Assessment: Acute Pancreatitis : from meds , or from OTC supplements, he is not a drinker HTN: well controlled JEFF: pre-renal : improved Plan: Plan: Continue IVF, RL at 100 cc/h continue current meds GI follow up transfer to [facility] Daily labs.
[2018-08-07] MEDS: Enoxaparin 40 mg Syringe SC SCH (08:48)
[2018-08-07] MEDS: Cefepime 1 GM in Sodium Chloride 0.9% 100 ML IVPB SCH ×2 (08:48→21:16)
[2018-08-07 10:06] LABS: BANDS 1 % (0-2); LYMPHOCYTE 5 % (20-50); MONOCYTE 6 % (0-10); NEUTROPHIL 88 % (42-75); PLATELET ESTIMATE NORMAL (NORMAL); TOTAL CELLS COUNTED 100
[2018-08-07 10:08] LABS: LARGE PLATELETS PRESENT
--- NOTE | 2018-08-07 18:44 | CP.PCM.PN ---
Subjective - Date & Time of Evaluation Date of Evaluation: 08/07/18 Time of Evaluation: 11:00 - Subjective Subjective: patient seen and examined at bedside. no acute events overnight. GI following abdominal pain improving. constipation present no other complaints at this time. Objective - Vital Signs/Intake and Output Vital Signs (last 24 hours): Temp Pulse Resp BP Pulse Ox 99.0 F 86 21 171/93 H 94 L 08/07/18 16:00 08/07/18 16:07 08/07/18 16:00 08/07/18 16:07 08/07/18 08:00 Intake and Output: 08/07/18 08/07/18 06:59 18:59 Intake Total Output Total Balance - Medications Medications: Current Medications Albuterol/Ipratropium (Duoneb 3 Mg/0.5 Mg (3 Ml) Ud) 3 ml INH RQ6 PRN PRN Reason: Shortness of Breath Last Admin: 08/07/18 18:23 Dose: 3 ml Amlodipine Besylate (Norvasc) 5 mg PO BID ISMA Last Admin: 08/07/18 16:07 Dose: 5 mg Enoxaparin Sodium (Lovenox) 40 mg SC DAILY ISMA; Protocol Last Admin: 08/07/18 08:48 Dose: 40 mg Hydromorphone HCl (Dilaudid) 1 mg IVP Q4 PRN PRN Reason: Pain, severe (8-10) Last Admin: 08/07/18 14:46 Dose: 1 mg Cefepime HCl 1 gm/ Sodium (Chloride) 100 mls @ 100 mls/hr IVPB Q12 ISMA; Protocol Stop: 08/13/18 00:00 Last Admin: 08/07/18 08:48 Dose: 100 mls/hr Metronidazole (Flagyl 500mg/100ml Ns) 100 mls @ 100 mls/hr IVPB Q8 ISMA; Protocol Last Admin: 08/07/18 16:06 Dose: 100 mls/hr Lactated Ringer's (Lactated Ringer's) 1,000 mls @ 200 mls/hr IV .Q5H ISMA Last Admin: 08/07/18 06:53 Dose: Not Given Lactulose (Enulose) 20 gm PO Q12 PRN PRN Reason: Constipation Last Admin: 08/07/18 18:15 Dose: 20 gm Ondansetron HCl (Zofran Inj) 4 mg IVP Q6 PRN PRN Reason: Nausea/Vomiting Last Admin: 08/06/18 12:57 Dose: 4 mg Pantoprazole Sodium (Protonix Inj) 40 mg IVP DAILY [facility]MA Last Admin: 08/07/18 08:49 Dose: 40 mg Thyroid ([place] Thyroid) 30 mg PO DAILY ISMA - Labs Labs: 08/07/18 05:30 08/07/18 05:30 PT 11.1 Seconds (9.8-13.1) 08/06/18 03:30 INR 1.0 08/06/18 03:30 APTT 30.6 Seconds (25.6-37.1) 08/06/18 03:30 - Constitutional Appears: Non-toxic, No Acute Distress - Head Exam Head Exam: NORMAL INSPECTION - Eye Exam Eye Exam: Normal appearance - Neck Exam Neck Exam: Normal Inspection - Respiratory Exam Respiratory Exam: NORMAL BREATHING PATTERN - Cardiovascular Exam Cardiovascular Exam: +S1, +S2 - GI/Abdominal Exam GI & Abdominal Exam: Firm, Normal Bowel Sounds. absent: Tenderness - Extremities Exam Extremities Exam: Normal Inspection - Neurological Exam Neurological Exam: Alert, Awake - Psychiatric Exam Psychiatric exam: Normal Affect, Normal Mood - Skin Skin Exam: Normal Color, Warm Assessment and Plan - Assessment and Plan (Free Text) Assessment: 57 h/o HTN, hypothyroidism, asthma and CKD-2 admitted to ICU due to pancreatitis. plan trend lipase (30k initial), now 2771 trend wbc monitor vitals c/w aggressive IVF c/w IV abx emperically GI consultation appreciated lactulose prn
--- NOTE | 2018-08-07 20:05 | CP.PCM.PN ---
Subjective - Date & Time of Evaluation Date of Evaluation: 08/07/18 Time of Evaluation: 09:00 - Subjective Subjective: Patient clinically appears to be in less distress. Objective - Vital Signs/Intake and Output Vital Signs (last 24 hours): Temp Pulse Resp BP Pulse Ox 99.0 F 86 21 171/93 H 94 L 08/07/18 16:00 08/07/18 16:07 08/07/18 16:00 08/07/18 16:07 08/07/18 08:00 - Medications Medications: Current Medications Albuterol/Ipratropium (Duoneb 3 Mg/0.5 Mg (3 Ml) Ud) 3 ml INH RQ6 PRN PRN Reason: Shortness of Breath Last Admin: 08/07/18 18:23 Dose: 3 ml Amlodipine Besylate (Norvasc) 5 mg PO BID ISMA Last Admin: 08/07/18 16:07 Dose: 5 mg Enoxaparin Sodium (Lovenox) 40 mg SC DAILY ISMA; Protocol Last Admin: 08/07/18 08:48 Dose: 40 mg Hydromorphone HCl (Dilaudid) 1 mg IVP Q4 PRN PRN Reason: Pain, severe (8-10) Last Admin: 08/07/18 19:41 Dose: 1 mg Cefepime HCl 1 gm/ Sodium (Chloride) 100 mls @ 100 mls/hr IVPB Q12 ISMA; Protocol Stop: 08/13/18 00:00 Last Admin: 08/07/18 08:48 Dose: 100 mls/hr Metronidazole (Flagyl 500mg/100ml Ns) 100 mls @ 100 mls/hr IVPB Q8 ISMA; Protocol Last Admin: 08/07/18 16:06 Dose: 100 mls/hr Lactated Ringer's (Lactated Ringer's) 1,000 mls @ 200 mls/hr IV .Q5H ISMA Last Admin: 08/07/18 06:53 Dose: Not Given Lactulose (Enulose) 20 gm PO Q12 PRN PRN Reason: Constipation Last Admin: 08/07/18 18:15 Dose: 20 gm Ondansetron HCl (Zofran Inj) 4 mg IVP Q6 PRN PRN Reason: Nausea/Vomiting Last Admin: 08/06/18 12:57 Dose: 4 mg Pantoprazole Sodium (Protonix Inj) 40 mg IVP DAILY [facility] Last Admin: 08/07/18 08:49 Dose: 40 mg Thyroid ([place] Thyroid) 30 mg PO DAILY ISMA - Labs Labs: 08/07/18 05:30 08/07/18 05:30 PT 11.1 Seconds (9.8-13.1) 08/06/18 03:30 INR 1.0 08/06/18 03:30 APTT 30.6 Seconds (25.6-37.1) 08/06/18 03:30 - Head Exam Head Exam: ATRAUMATIC - Eye Exam Eye Exam: PERRL - ENT Exam ENT Exam: Mucous Membranes Moist - Neck Exam Neck Exam: Full ROM - Respiratory Exam Respiratory Exam: Clear to Ausculation Bilateral - Cardiovascular Exam Cardiovascular Exam: REGULAR RHYTHM - GI/Abdominal Exam GI & Abdominal Exam: Soft, Tenderness, Normal Bowel Sounds Additional comments: lower abdominal tenderness. Assessment and Plan (1) Pancreatitis Assessment & Plan: Lipase much better. No deterioration in Hgb and renal status. May slowly advance diet. If possible attempt to control pain with nonpiate analgesia Status: Acute
[2018-08-08] MEDS: Lactated Ringer's 1,000 ML IV SCH ×2 (03:13→10:38)
[2018-08-08] MEDS ORDERED: DiphenhydrAMINE 50 mg/ml Inj IVP STA (03:19)
[2018-08-08 05:51] LABS: HEMOGLOBIN 14.1 g/dL (12.0-18.0); MEAN CELL VOLUME 89.7 fl (80.0-94.0); MEAN CORPUSCULAR HEMOGLOBIN 29.4 pg (27.0-31.0); MEAN CORPUSCULAR HGB CONC 32.8 g/dL (33.0-37.0); RBC 4.79 Mil/uL (4.40-5.90); RED CELL DISTRIBUTION WIDTH 13.5 % (11.5-14.5); WHITE BLOOD COUNT 19.3 K/uL (4.8-10.8)
[2018-08-08] MEDS: THYROID 30 MG TAB PO SCH (06:19)
[2018-08-08 06:25] LABS: ALB/GLOB RATIO 1.2 (1.0-2.1); ALBUMIN 3.1 g/dL (3.5-5.0); ALT/SGPT 37 U/L (21-72); AST/SGOT 31 U/L (17-59); BLOOD UREA NITROGEN 22 mg/dl (9-20); GFR NON-AFRICAN AMERICAN > 60; LIPASE 642 U/L (23-300)
[2018-08-08] MEDS: Albuterol-Ipratrop 3 mg / 0.5 (3 ml) UD INH PRN ×3 (08:07→23:29)
[2018-08-08] MEDS ORDERED: Bisacodyl 5mg EC Tab PO ONE (10:02)
[2018-08-08] MEDS: Cefepime 1 GM in Sodium Chloride 0.9% 100 ML IVPB SCH ×2 (10:36→20:21)
[2018-08-08] MEDS: metroNIDAZOLE 500mg/100ml NS 100 ML IVPB SCH ×3 (10:37→17:21)
[2018-08-08] MEDS: Enoxaparin 40 mg Syringe SC SCH (10:37)
--- NOTE | 2018-08-08 11:05 | CP.PCM.CON ---
History of Present Illness - History of Present Illness History of Present Illness: 57 yo admitted for pancreatitis is referred for abdominal pain. Patient denies a history of chronic pain and on chronic pain meds. Only relevant medication history was testosterone self-injection. Urine tox screen did show opioid, but probably from ER administeration of Morphine. Today, he's complaining of diffuse pain in the upper back to the lower back. The pain is axial and non-radiating. He has had chronic spine issues, but was mostly seeing a chiropractor, and has never had a MRI. He's been bed-bound for a few days as well, and that may be contributing to his discomfort. He states that Dilaudid IV, once increased to 2mg, is helping him for approximately 3 hours. Past Patient History - Past Medical History & Family History Past Medical History?: Yes - Past Social History Smoking Status: Never Smoked - CARDIAC Hx Hypertension: Yes - PULMONARY Hx Asthma: Yes - RENAL Hx Chronic Kidney Disease: Yes - ENDOCRINE/METABOLIC Hx Hypothyroidism: Yes Other/Comment: takes testosterone replacement RX , I/M - HEMATOLOGICAL/ONCOLOGICAL Hx AIDS: No Hx Human Immunodeficiency Virus (HIV): No - MUSCULOSKELETAL/RHEUMATOLOGICAL Hx Falls: No - GASTROINTESTINAL Hx Gastrointestinal Disorders: No - GENITOURINARY/GYNECOLOGICAL Hx Genitourinary Disorders: No - PSYCHIATRIC Hx Psychophysiologic Disorder: No Hx Substance Use: No - SURGICAL HISTORY Hx Tonsillectomy: Yes Meds Allergies/Adverse Reactions: Allergies Allergy/AdvReac Type Severity Reaction Status Date / Time No Known Allergies Allergy Verified 08/06/18 03:21 - Medications Medications: Current Medications Albuterol/Ipratropium (Duoneb 3 Mg/0.5 Mg (3 Ml) Ud) 3 ml INH RQ6 PRN PRN Reason: Shortness of Breath Last Admin: 08/08/18 08:07 Dose: 3 ml Amlodipine Besylate (Norvasc) 5 mg PO BID [facility] Last Admin: 08/08/18 10:32 Dose: 5 mg Docusate Sodium (Colace) 200 mg PO DAILY [facility] Enoxaparin Sodium (Lovenox) 40 mg SC DAILY [facility]; Protocol Last Admin: 08/08/18 10:37 Dose: 40 mg Hydromorphone HCl (Dilaudid) 2 mg IVP Q4H PRN PRN Reason: Pain, severe (8-10) Last Admin: 08/08/18 07:59 Dose: 2 mg Cefepime HCl 1 gm/ Sodium (Chloride) 100 mls @ 100 mls/hr IVPB Q12 [facility]; Protocol Stop: 08/13/18 00:00 Last Admin: 08/08/18 10:36 Dose: 100 mls/hr Metronidazole (Flagyl 500mg/100ml Ns) 100 mls @ 100 mls/hr IVPB Q8 [facility]; Protocol Last Admin: 08/08/18 10:37 Dose: 100 mls/hr Lactated Ringer's (Lactated Ringer's) 1,000 mls @ 125 mls/hr IV .Q8H [facility] Last Admin: 08/08/18 10:38 Dose: 125 mls/hr Lactulose (Enulose) 20 gm PO Q12 PRN PRN Reason: Constipation Last Admin: 08/07/18 18:15 Dose: 20 gm Ondansetron HCl (Zofran Inj) 4 mg IVP Q6 PRN PRN Reason: Nausea/Vomiting Last Admin: 08/06/18 12:57 Dose: 4 mg Pantoprazole Sodium (Protonix Inj) 40 mg IVP DAILY [facility] Last Admin: 08/08/18 10:36 Dose: 40 mg Thyroid ([place] Thyroid) 30 mg PO DAILY [facility] Last Admin: 08/08/18 06:19 Dose: 30 mg Physical Exam - Back Exam Back exam: CVA tenderness (L), paraspinal tenderness, vertebral tenderness Results - Vital Signs Recent Vital Signs: Last Vital Signs Temp 99.0 F 08/08/18 08:00 Pulse 91 H 08/08/18 10:32 Resp 20 08/08/18 08:00 BP 169/102 H 08/08/18 10:32 Pulse Ox 90 L 08/08/18 08:00 - Labs Result Diagrams: 08/08/18 04:35 08/08/18 04:35 Labs: Laboratory Results - last 24 hr 08/08/18 08/08/18 04:35 04:35 WBC 19.3 H RBC 4.79 Hgb 14.1 Hct 42.9 MCV 89.7 MCH 29.4 MCHC 32.8 L RDW 13.5 Plt Count 197 Sodium 138 Potassium 3.9 Chloride 103 Carbon Dioxide 29 Anion Gap 10 BUN 22 H Creatinine 1.0 Est GFR ( Amer) > 60 Est GFR (Non-Af Amer) > 60 Random Glucose 101 Calcium 8.0 L Total Bilirubin 1.1 AST 31 ALT 37 Alkaline Phosphatase 31 L D Total Protein 5.8 L Albumin 3.1 L Globulin 2.7 Albumin/Globulin Ratio 1.2 Lipase 642 H Assessment & Plan - Assessment and Plan (Free Text) Assessment: 57 yo w/ pancreatitis, acute on chronic lower back pain. - continue Dilaudid IV for now, would not increase further - would rule out myositis, given diffuse muscular pain and renal insufficiency, and steroid use - PT eval for ambulation - no indication for further imaging studies right now - f/u GI recommendation
--- NOTE | 2018-08-08 14:12 | US ---
Date of service: 08/08/2018 HISTORY: ruq pain, pancreatitis COMPARISON: Comparison is made to the previous CT dated 08/06/2018 TECHNIQUE: Sonographic evaluation of the abdomen. FINDINGS: LIVER: Measures 13.9 cm. Mild increased echogenicity of the liver parenchyma. No mass. No intrahepatic bile duct dilatation. GALLBLADDER: Unremarkable. No gallstones. COMMON BILE DUCT: Measures 5 mm. No stones. No dilatation. PANCREAS: Heterogeneous and hypoechoic echotexture of the pancreas is noted consistent with the patient's history of acute pancreatitis. RIGHT KIDNEY: Measures 11.6 x 7 x 6.1cm. Normal echogenicity. No calculus, mass, or hydronephrosis. LEFT KIDNEY: Measures 11 x 5.6 x 6.3cm. Mild fullness noted in the left kidney without evidence of calculus or suspicious mass. SPLEEN: Normal in size and contour. No mass. AORTA: No aneurysmal dilatation. IVC: Unremarkable. OTHER FINDINGS: Trace amount of free fluid noted in the upper abdomen likely related to acute pancreatitis IMPRESSION: No evidence of cholelithiasis or cholecystitis. Heterogeneous hypoechoic pancreas consistent with the patient's history of acute pancreatitis. Trace amount of free fluid in the upper abdomen likely related to acute pancreatitis. Mild fullness in the collecting system of the left kidney noted. No evidence of obstructing stone.
--- NOTE | 2018-08-08 14:17 | CP.PCM.PN ---
Subjective - Date & Time of Evaluation Date of Evaluation: 08/08/18 Time of Evaluation: 10:00 - Subjective Subjective: patient seen and examined at bedside. states having acute on chronic lower back pain, requiring high doses of opiates. GI following abdominal pain improving. constipation still present no other complaints at this time. Objective - Vital Signs/Intake and Output Vital Signs (last 24 hours): Temp Pulse Resp BP Pulse Ox 98.5 F 95 H 18 162/99 H 94 L 08/08/18 12:00 08/08/18 13:39 08/08/18 12:00 08/08/18 12:00 08/08/18 13:39 Intake and Output: 08/08/18 08/08/18 06:59 18:59 Intake Total 2560 Output Total 725 250 Balance 1835 -250 - Medications Medications: Current Medications Albuterol/Ipratropium (Duoneb 3 Mg/0.5 Mg (3 Ml) Ud) 3 ml INH RQ6 PRN PRN Reason: Shortness of Breath Last Admin: 08/08/18 08:07 Dose: 3 ml Amlodipine Besylate (Norvasc) 5 mg PO BID [facility] Last Admin: 08/08/18 10:32 Dose: 5 mg Docusate Sodium (Colace) 200 mg PO DAILY [facility] Last Admin: 08/08/18 11:58 Dose: 200 mg Enoxaparin Sodium (Lovenox) 40 mg SC DAILY [facility]; Protocol Last Admin: 08/08/18 10:37 Dose: 40 mg Hydromorphone HCl (Dilaudid) 2 mg IVP Q4H PRN PRN Reason: Pain, severe (8-10) Last Admin: 08/08/18 11:53 Dose: 2 mg Cefepime HCl 1 gm/ Sodium (Chloride) 100 mls @ 100 mls/hr IVPB Q12 [facility]; Protocol Stop: 08/13/18 00:00 Last Admin: 08/08/18 10:36 Dose: 100 mls/hr Metronidazole (Flagyl 500mg/100ml Ns) 100 mls @ 100 mls/hr IVPB Q8 [facility]; Protocol Last Admin: 08/08/18 10:37 Dose: 100 mls/hr Lactated Ringer's (Lactated Ringer's) 1,000 mls @ 125 mls/hr IV .Q8H [facility] Last Admin: 08/08/18 10:38 Dose: 125 mls/hr Lactulose (Enulose) 20 gm PO Q12 PRN PRN Reason: Constipation Last Admin: 08/07/18 18:15 Dose: 20 gm Ondansetron HCl (Zofran Inj) 4 mg IVP Q6 PRN PRN Reason: Nausea/Vomiting Last Admin: 08/06/18 12:57 Dose: 4 mg Pantoprazole Sodium (Protonix Inj) 40 mg IVP DAILY [facility] Last Admin: 08/08/18 10:36 Dose: 40 mg Thyroid ([place] Thyroid) 30 mg PO DAILY [facility] Last Admin: 08/08/18 06:19 Dose: 30 mg - Labs Labs: 08/08/18 04:35 08/08/18 04:35 PT 11.1 Seconds (9.8-13.1) 08/06/18 03:30 INR 1.0 08/06/18 03:30 APTT 30.6 Seconds (25.6-37.1) 08/06/18 03:30 - Additional Findings Additional findings: - Constitutional Appears: Non-toxic, No Acute Distress - Head Exam Head Exam: NORMAL INSPECTION - Eye Exam Eye Exam: Normal appearance - Neck Exam Neck Exam: Normal Inspection - Respiratory Exam Respiratory Exam: NORMAL BREATHING PATTERN - Cardiovascular Exam Cardiovascular Exam: +S1, +S2 - GI/Abdominal Exam GI & Abdominal Exam: Firm, Normal Bowel Sounds. absent: Tenderness - Extremities Exam Extremities Exam: Normal Inspection - Neurological Exam Neurological Exam: Alert, Awake - Psychiatric Exam Psychiatric exam: Normal Affect, Normal Mood - Skin Skin Exam: Normal Color, Warm Assessment and Plan - Assessment and Plan (Free Text) Assessment: 57 h/o HTN, hypothyroidism, asthma and CKD-2 admitted due to pancreatitis, unknown etiology. plan trend lipase (30k initial), now 642 trend wbc, continues to be elevated monitor vitals c/w IVF c/w IV abx emperically GI consultation appreciated lactulose prn obtain abd us consult pain management start colace dulcolax x 1
--- NOTE | 2018-08-08 19:46 | PN ---
DATE: 08/08/2018 CRITICAL CARE PROGRESS NOTE LOCATION: The patient in ICU, bed 430. Time spent, 35 minutes. The patient is seen and evaluated at the bed side. Past medical, surgical, family, and social history reviewed. Case was discussed in ICU multidisciplinary rounds this morning. Events since admission noted. A 57-year-old male with hypertension, hypothyroidism, asthma, chronic kidney disease stage II, admitted with 1-day of acute abdominal pain with elevated lipase. CT abdomen is consistent with acute pancreatitis and/or nephrolithiasis, seen by GI consult, on IV fluid antibiotics and analgesics, pain reduced. No nausea, vomiting, or diarrhea, on clear liquid in progress. Overnight normotensive, afebrile. Telemetry, sinus rhythm. PHYSICAL EXAMINATION: VITAL SIGNS: Temperature 99, heart rate 102, respiratory rate of 20 thoracoabdominal, blood pressure 158/96, oxygen saturation 90%, oxygen supplement 2 L nasal cannula. Intake 2560, output 725, balance 1835. Weight 160 pounds. EXAMINATION OF HEAD, EYES, EARS, NOSE, AND THROAT: Pupils are reactive. Conjunctivae pink. Sclerae white. NECK: Supple. Trachea central. CHEST: Bilateral breath sounds. Clear to auscultation. HEART: Rhythm regular. S1, S2 normal intensity. ABDOMEN: Mild tenderness in the epigastric area. No rebound tenderness. Hernial orifice is normal. EXTREMITIES: Without clubbing, cyanosis, or edema. NEUROLOGIC: Nonfocal. CURRENT MEDICATIONS: DuoNeb 3 mL via nebulizer every 6 hours p.r.n., amlodipine 5 mg p.o. twice daily, cefepime 1 g IV every 12 hours, Colace 200 mg p.o. daily, Lovenox 40 subcu daily, Dilaudid 2 mg IV every 4 hours p.r.n., Ringer's lactate at 125 mL per hour, lactulose 20 g p.o. every 12 hours, Flagyl 500 mg IV every 8 hours, Zofran 4 mg IV every 6 hours p.r.n., Protonix 40 IV daily, thyroid 30 mg p.o. daily. LABORATORY DATA: WBC 19.3, hemoglobin 14.1, hematocrit 42.9, platelet count of 197. PT 11.1, INR 1, PTT 30.6. SMA-7: Sodium 139, potassium 4.2, chloride 103, CO2 of 29, blood urea nitrogen 25, creatinine 1.2, random glucose 102, lactic acid 1.8, calcium 8.4, total bilirubin 1.1, AST 29, ALT 40, alkaline phosphatase 24, total protein 6.3, albumin 3.4, amylase 646, lipase 2771. TSH 1.01. Urine drug screen positive for opiates. Microbiology, none reported. Chest x-ray from 08/06, no active disease. IMPRESSION: 1. Neurologic: Alert, awake, follows commands appropriate. 2. Pulmonary: No evidence of pleural effusion or pneumonia. 3. Cardiac: Telemetry sinus rhythm. Hypertension still elevated secondary to pain in abdomen. Continue amlodipine 5 mg twice daily. Analgesics as needed. 4. Gastrointestinal: Acute pancreatitis. Lipase trending down. Tolerating clear liquids. Continue analgesics. Antibiotic empirically with cefepime and Flagyl. 5. Renal. Chronic kidney disease stage II. Continue IV hydration, reduced from 200 to 125 mL. 6. Hematology. Leukocytosis, reactive to acute pancreatitis. Continue DuoNeb given history of asthma. Maintain oxygen saturation above 94%. Addison Granado MD
--- NOTE | 2018-08-08 19:57 | CP.PCM.PN ---
Subjective - Date & Time of Evaluation Date of Evaluation: 08/08/18 Time of Evaluation: 12:00 - Subjective Subjective: Pain better controlled. No new complaints. Objective - Vital Signs/Intake and Output Vital Signs (last 24 hours): Temp Pulse Resp BP Pulse Ox 98.5 F 98 H 18 193/111 H 93 L 08/08/18 16:00 08/08/18 17:17 08/08/18 16:00 08/08/18 17:17 08/08/18 16:00 Intake and Output: 08/08/18 08/09/18 18:59 06:59 Intake Total 2000 Output Total 600 Balance 1400 - Medications Medications: Current Medications Albuterol/Ipratropium (Duoneb 3 Mg/0.5 Mg (3 Ml) Ud) 3 ml INH RQ6 PRN PRN Reason: Shortness of Breath Last Admin: 08/08/18 15:41 Dose: 3 ml Amlodipine Besylate (Norvasc) 5 mg PO BID [facility] Last Admin: 08/08/18 17:17 Dose: 5 mg Docusate Sodium (Colace) 200 mg PO DAILY [facility] Last Admin: 08/08/18 11:58 Dose: 200 mg Enoxaparin Sodium (Lovenox) 40 mg SC DAILY [facility]; Protocol Last Admin: 08/08/18 10:37 Dose: 40 mg Hydromorphone HCl (Dilaudid) 2 mg IVP Q4H PRN PRN Reason: Pain, severe (8-10) Last Admin: 08/08/18 15:58 Dose: 2 mg Cefepime HCl 1 gm/ Sodium (Chloride) 100 mls @ 100 mls/hr IVPB Q12 [facility]; Protocol Stop: 08/13/18 00:00 Last Admin: 08/08/18 10:36 Dose: 100 mls/hr Metronidazole (Flagyl 500mg/100ml Ns) 100 mls @ 100 mls/hr IVPB Q8 [facility]; Protoc ol Last Admin: 08/08/18 17:21 Dose: 100 mls/hr Lactated Ringer's (Lactated Ringer's) 1,000 mls @ 125 mls/hr IV .Q8H [facility] Last Admin: 08/08/18 10:38 Dose: 125 mls/hr Lactulose (Enulose) 20 gm PO Q12 PRN PRN Reason: Constipation Last Admin: 08/07/18 18:15 Dose: 20 gm Ondansetron HCl (Zofran Inj) 4 mg IVP Q6 PRN PRN Reason: Nausea/Vomiting Last Admin: 08/06/18 12:57 Dose: 4 mg Pantoprazole Sodium (Protonix Inj) 40 mg IVP DAILY [facility] Last Admin: 08/08/18 10:36 Dose: 40 mg Thyroid ([employer] Thyroid) 30 mg PO DAILY [facility] Last Admin: 08/08/18 06:19 Dose: 30 mg - Labs Labs: 08/08/18 04:35 08/08/18 04:35 PT 11.1 Seconds (9.8-13.1) 08/06/18 03:30 INR 1.0 08/06/18 03:30 APTT 30.6 Seconds (25.6-37.1) 08/06/18 03:30 - Head Exam Head Exam: ATRAUMATIC - Eye Exam Eye Exam: Normal appearance Pupil Exam: PERRL - ENT Exam ENT Exam: Normal Exam - Neck Exam Neck Exam: Full ROM - Respiratory Exam Respiratory Exam: Clear to Ausculation Bilateral - Cardiovascular Exam Cardiovascular Exam: REGULAR RHYTHM, +S1, +S2 - GI/Abdominal Exam GI & Abdominal Exam: Soft, Tenderness, Normal Bowel Sounds Assessment and Plan (1) Pancreatitis Assessment & Plan: Pain under control. Still with lower abdominal distention. Continue current treatment with IV fluids and adequate analgesia. Status: Acute
[2018-08-09] MEDS: metroNIDAZOLE 500mg/100ml NS 100 ML IVPB SCH ×3 (00:01→20:08)
[2018-08-09] MEDS: Lactated Ringer's 1,000 ML IV SCH ×2 (02:16→20:09)
[2018-08-09 06:41] LABS: HEMOGLOBIN 13.9 g/dL (12.0-18.0); MEAN CELL VOLUME 89.8 fl (80.0-94.0); MEAN CORPUSCULAR HEMOGLOBIN 29.8 pg (27.0-31.0); MEAN CORPUSCULAR HGB CONC 33.1 g/dL (33.0-37.0); RBC 4.67 Mil/uL (4.40-5.90); RED CELL DISTRIBUTION WIDTH 13.9 % (11.5-14.5); WHITE BLOOD COUNT 17.8 K/uL (4.8-10.8)
[2018-08-09 07:00] LABS: ALB/GLOB RATIO 1.2 (1.0-2.1); ALBUMIN 3.1 g/dL (3.5-5.0); ALT/SGPT 35 U/L (21-72); AST/SGOT 50 U/L (17-59); BLOOD UREA NITROGEN 24 mg/dl (9-20); CALCIUM 7.9 mg/dL (8.4-10.2); GFR NON-AFRICAN AMERICAN > 60; LIPASE 119 U/L (23-300)
[2018-08-09] MEDS ORDERED: Labetalol 5 mg/ml Inj 20ML IVP STA (07:56)
--- NOTE | 2018-08-09 08:02 | CP.PCM.PN ---
Subjective - Date & Time of Evaluation Date of Evaluation: 08/09/18 Time of Evaluation: 08:00 - Subjective Subjective: GI Note for Dr. Bynum 57M seen and examined at bedside. Patient states abdominal pain is improving, he is tolerating liquid diet. Continues to complain of back pain. [employer] called this AM for hypertension 190s systolic. Patient states he had very mild headache. Medical team bedside. Objective - Vital Signs/Intake and Output Vital Signs (last 24 hours): Temp Pulse Resp BP Pulse Ox 99 F 98 H 19 150/76 93 L 08/09/18 00:57 08/09/18 00:57 08/09/18 00:57 08/09/18 00:57 08/09/18 00:57 Intake and Output: 08/09/18 08/09/18 06:59 18:59 Intake Total 125 Balance 125 - Medications Medications: Current Medications Albuterol/Ipratropium (Duoneb 3 Mg/0.5 Mg (3 Ml) Ud) 3 ml INH RQ6 PRN PRN Reason: Shortness of Breath Last Admin: 08/08/18 23:29 Dose: 3 ml Amlodipine Besylate (Norvasc) 5 mg PO BID [facility] Last Admin: 08/08/18 17:17 Dose: 5 mg Docusate Sodium (Colace) 200 mg PO DAILY [facility] Last Admin: 08/08/18 11:58 Dose: 200 mg Enoxaparin Sodium (Lovenox) 40 mg SC DAILY [facility]; Protocol Last Admin: 08/08/18 10:37 Dose: 40 mg Hydromorphone HCl (Dilaudid) 2 mg IVP Q4H PRN PRN Reason: Pain, severe (8-10) Last Admin: 08/09/18 04:07 Dose: 2 mg Cefepime HCl 1 gm/ Sodium (Chloride) 100 mls @ 100 mls/hr IVPB Q12 [facility]; Protocol Stop: 08/13/18 00:00 Last Admin: 08/08/18 20:21 Dose: 100 mls/hr Metronidazole (Flagyl 500mg/100ml Ns) 100 mls @ 100 mls/hr IVPB Q8 [facility]; Protocol Last Admin: 08/09/18 00:01 Dose: 100 mls/hr Lactated Ringer's (Lactated Ringer's) 1,000 mls @ 125 mls/hr IV .Q8H [facility] Last Admin: 08/09/18 02:16 Dose: Not Given Labetalol HCl (Trandate) 20 mg IVP STAT STA Stop: 08/09/18 07:57 Lactulose (Enulose) 20 gm PO Q12 PRN PRN Reason: Constipation Last Admin: 08/07/18 18:15 Dose: 20 gm Ondansetron HCl (Zofran Inj) 4 mg IVP Q6 PRN PRN Reason: Nausea/Vomiting Last Admin: 08/06/18 12:57 Dose: 4 mg Pantoprazole Sodium (Protonix Inj) 40 mg IVP DAILY [facility] Last Admin: 08/08/18 10:36 Dose: 40 mg Thyroid ([place] Thyroid) 30 mg PO DAILY [facility] Last Admin: 08/08/18 06:19 Dose: 30 mg - Labs Labs: 08/09/18 05:55 08/09/18 05:55 PT 11.1 Seconds (9.8-13.1) 08/06/18 03:30 INR 1.0 08/06/18 03:30 APTT 30.6 Seconds (25.6-37.1) 08/06/18 03:30 - Constitutional Appears: Non-toxic, No Acute Distress - Respiratory Exam Respiratory Exam: Clear to Ausculation Bilateral, NORMAL BREATHING PATTERN - Cardiovascular Exam Cardiovascular Exam: REGULAR RHYTHM, +S1, +S2 - GI/Abdominal Exam GI & Abdominal Exam: Soft, Tenderness. absent: Distended, Firm, Guarding, Rigid, Rebound - Extremities Exam Extremities Exam: absent: Pedal Edema, Tenderness - Neurological Exam Neurological Exam: Alert, Awake - Skin Skin Exam: Dry, Intact, Normal Color, Warm Assessment and Plan - Assessment and Plan (Free Text) Assessment: 57M with acute pancreatitis, improving Plan: - ADAT - Pain control - Continue IV fluids - Serial abdominal exams Further recs discuss with Dr. Misa Cabrera, PGY3
--- NOTE | 2018-08-09 08:10 | PCM.RRT ---
<Lizz Chatterjee - Last Filed: 08/09/18 09:28> I.Reason for HRIS ANALYST - A) Acute Change in Patient: Subjective: HRIS ANALYST Time: 7:51 AM HRIS ANALYST Arrival Time: 7:53AM HRIS ANALYST Location: [facility] HRIS ANALYST VS on Arrival: BP 199/94, HR 96, Ox Sat 93%, BS 98 S: HRIS ANALYST called by nurse after patient was found with elevated BP and became agitated c/o abdominal pain. The patient is a 57 Y/O with h/o HTN, hypothyroidism, asthma and CKD-2 admitted due to pancreatitis. Patient states he requested his pain medication and while waiting his upper abdominal pain and back pain increased and he felt dizzy. O: HEENT: Normocephalic and atraumatic. CV: RRR, S1 S2 present RESP: CTA b/l, no wheezing. ABD: Soft mild tenderness to epigastrium. EXT: No edema. Neuro: AAOx3. Assessment and Plan 57 Y/O with PMHx of HTN, hypothyroidism, asthma and CKD-2 admitted due to pancreatitis, with sudden elevation of BP 199/94 due to pain. Condition at the end of HRIS ANALYST: patient received pain medication dilaudid IV 2 mg IVP and BP decreased to 163/82, patient condition improved. Patient reports pain improved after pain medication was administered. HRIS ANALYST interventions: -Dilaudid 2 mg IVP given, as per patient schedule -Norvasc 5 mg PO given, as per patient schedule -Resident MD rounding with PMD notified No other intervention needed. <Chelsie Kim - Last Filed: 08/09/18 16:10> HRIS ANALYST Nurse Assessment - Vital Signs Vital Signs: Rapid Response Vital Sign Blood Pressure 186/94 Pulse Rate 83 Respiratory Rate 18 Temperature 99 F Oxygen Saturation 93 - Vital Signs at end of HRIS ANALYST Vital Signs at end of HRIS ANALYST: Rapid Response End Vital Sign Blood Pressure 163/82 Pulse Rate 98 Respiratory Rate 10 Temperature 99 F O2 Sat by Pulse Oximetry 93 Attending/Attestation - Attestation I have personally seen and examined this patient.: Yes I have fully participated in the care of the patient.: Yes I have reviewed all pertinent clinical information, including history, physical exam and plan: Yes
[2018-08-09] MEDS: Enoxaparin 40 mg Syringe SC SCH (09:48)
[2018-08-09] MEDS: Albuterol-Ipratrop 3 mg / 0.5 (3 ml) UD INH SCH ×4 (10:14→19:00)
[2018-08-09] MEDS: THYROID 30 MG TAB PO SCH (10:45)
[2018-08-09] MEDS: Cefepime 1 GM in Sodium Chloride 0.9% 100 ML IVPB SCH (13:00)
[2018-08-10] MEDS: Cefepime 1 GM in Sodium Chloride 0.9% 100 ML IVPB SCH ×2 (00:06→15:31)
[2018-08-10] MEDS: Albuterol-Ipratrop 3 mg / 0.5 (3 ml) UD INH SCH ×5 (01:03→14:43)
[2018-08-10] MEDS: metroNIDAZOLE 500mg/100ml NS 100 ML IVPB SCH ×3 (04:09→21:53)
--- NOTE | 2018-08-10 08:19 | CP.PCM.PN ---
Subjective - Date & Time of Evaluation Date of Evaluation: 08/10/18 Time of Evaluation: 08:15 - Subjective Subjective: Events noted. Patient has not improved clinically, and now has edema in the scrotal area, which he states is new. Pain continues to be diffuse in the abdomen and distension seems to be worse. The lower back continues to be painful as well, and after the initial PT eval he hasn't ambulated in the hallway since. He continues to require Dilaudid IV around the clock. Objective - Vital Signs/Intake and Output Vital Signs (last 24 hours): Temp Pulse Resp BP Pulse Ox 98.9 F 94 H 18 175/93 H 93 L 08/10/18 00:50 08/10/18 03:33 08/10/18 00:50 08/10/18 03:33 08/10/18 00:50 - Medications Medications: Current Medications Albuterol/Ipratropium (Duoneb 3 Mg/0.5 Mg (3 Ml) Ud) 3 ml INH RQ6 [facility] Last Admin: 08/10/18 08:04 Dose: Not Given Amlodipine Besylate (Norvasc) 5 mg PO BID [facility] Last Admin: 08/09/18 16:48 Dose: 5 mg Cyclobenzaprine HCl (Flexeril) 10 mg PO Q8 PRN PRN Reason: Muscle spasm Last Admin: 08/09/18 19:15 Dose: 10 mg Docusate Sodium (Colace) 200 mg PO DAILY [facility] Last Admin: 08/09/18 09:47 Dose: 200 mg Enoxaparin Sodium (Lovenox) 40 mg SC DAILY [facility]; Protocol Last Admin: 08/09/18 09:48 Dose: 40 mg Hydromorphone HCl (Dilaudid) 2 mg IVP Q4H PRN PRN Reason: Pain, severe (8-10) Last Admin: 08/10/18 08:10 Dose: 2 mg Lactated Ringer's (Lactated Ringer's) 1,000 mls @ 175 mls/hr IV .Q5H43M [facility] Last Admin: 08/09/18 20:09 Dose: 175 mls/hr Cefepime HCl 1 gm/ Sodium (Chloride) 100 mls @ 100 mls/hr IVPB Q12@0100,1300 [facility]; Protocol Last Admin: 08/10/18 00:06 Dose: 100 mls/hr Metronidazole (Flagyl 500mg/100ml Ns) 100 mls @ 100 mls/hr IVPB Q8@0500,1300,2100 [facility]; Protocol Last Admin: 08/10/18 04:09 Dose: 100 mls/hr Ketorolac Tromethamine (Toradol) 15 mg IVP Q6 PRN PRN Reason: Pain, moderate (4-7) Lactulose (Enulose) 20 gm PO Q12 PRN PRN Reason: Constipation Last Admin: 08/09/18 09:48 Dose: 20 gm Ondansetron HCl (Zofran Inj) 4 mg IVP Q6 PRN PRN Reason: Nausea/Vomiting Last Admin: 08/06/18 12:57 Dose: 4 mg Pantoprazole Sodium (Protonix Inj) 40 mg IVP DAILY [facility] Last Admin: 08/09/18 09:48 Dose: 40 mg Thyroid ([place] Thyroid) 30 mg PO DAILY [facility] Last Admin: 08/09/18 10:45 Dose: 30 mg - Labs Labs: 08/09/18 05:55 08/09/18 05:55 PT 11.1 Seconds (9.8-13.1) 08/06/18 03:30 INR 1.0 08/06/18 03:30 APTT 30.6 Seconds (25.6-37.1) 08/06/18 03:30 - GI/Abdominal Exam GI & Abdominal Exam: Distended, Tenderness Assessment and Plan - Assessment and Plan (Free Text) Assessment: 57 yo w/ pancreatitis. He's improving lab-marie, but not clinically. For now, the back pain is being treated as exacerbation of chronic pain from bedrest - f/u GI recommendation re: abdomen distension - PT for ambulation - consider lumbar MRI, it's unclear if back pain is from prolonged bedrest or part of the abdominal condition - continue Dilaudid 2mg IV PRN for now, would not increase until etiology is clear - continue adjuvant therapy
--- NOTE | 2018-08-10 08:48 | PN ---
DATE: 08/09/2018 SUBJECTIVE: The patient is seen and examined. The patient seen for Dr. . The patient remains in regular medical floor, complains of pain in the abdomen, pain on his back, and also constipation since Wednesday. No chest, no shortness of breath. The patient also has today morning due to elevated blood pressure. PHYSICAL EXAMINATION: GENERAL: Currently, the patient is in no acute distress. VITAL SIGNS: Blood pressure is 163/83, other vitals are stable. HEART: S1 and S2 normal and regular. LUNGS: Good bilateral air exchange. ABDOMEN: Remains with tender, but not acute. No guarding, no rigidity, no rebound. Bowel sounds are present and normal. No sign of acute abdomen constipation. EXTREMITIES: No edema, no calf swelling, no tenderness, and no acute ischemia. ARCHITECTURE ANALYST: Exam is essentially unchanged. LABORATORY DATA: Available diagnostic data reviewed. has returned to normal. ASSESSMENT AND PLAN: Overall, the patient is clinically stable. Plan as ordered.. Lars Daley MD
[2018-08-10 08:56] LABS: BASO % 0.2 % (0.0-2.0); EOS # 0.3 K/uL (0.0-0.7); HEMOGLOBIN 13.7 g/dL (12.0-18.0); LYMPH # 0.7 K/uL (1.0-4.3); LYMPH % 5.1 % (20.0-40.0); MEAN CELL VOLUME 90.6 fl (80.0-94.0); MEAN CORPUSCULAR HGB CONC 33.1 g/dL (33.0-37.0); MEAN PLATELET VOLUME 9.6 fl (7.2-11.7); MONO # 1.3 K/uL (0.0-0.8); MONO % 9.9 % (0.0-10.0); NEUT % 82.8 % (50.0-75.0); PLATELET COUNT 223 K/uL (130-400); RBC 4.56 Mil/uL (4.40-5.90); RED CELL DISTRIBUTION WIDTH 13.6 % (11.5-14.5); WHITE BLOOD COUNT 13.2 K/uL (4.8-10.8)
[2018-08-10 09:07] LABS: ALB/GLOB RATIO 1.1 (1.0-2.1); ALBUMIN 2.9 g/dL (3.5-5.0); ALT/SGPT 34 U/L (21-72); AST/SGOT 46 U/L (17-59); BLOOD UREA NITROGEN 24 mg/dl (9-20); GFR NON-AFRICAN AMERICAN > 60; LIPASE 67 U/L (23-300)
[2018-08-10] MEDS: THYROID 30 MG TAB PO SCH (09:23)
[2018-08-10] MEDS: Enoxaparin 40 mg Syringe SC SCH (09:23)
[2018-08-10 10:34] LABS: BANDS 1 % (0-2); EOSINOPHIL 2 % (0-7); LYMPHOCYTE 7 % (20-50); MONOCYTE 10 % (0-10); NEUTROPHIL 79 % (42-75); PLATELET ESTIMATE NORMAL (NORMAL); REACTIVE LYMPHOCYTES 1 % (0-0); TOTAL CELLS COUNTED 100
[2018-08-10] MEDS ORDERED: Potassium Chloride 20 mEq ER Tab PO ONE (11:30)
--- NOTE | 2018-08-10 12:55 | CP.PCM.CON ---
History of Present Illness - History of Present Illness History of Present Illness: 57 YOM came to ER for abdominal pain for lasr 12-18 hours and found to have > 30,000 lipase lavel. Pt has h/o HTN, and CKD-2, otherwise no signficant PMG. He is not a drinker, drinks rarely/socially. He saw me in office recently in [place] for CKD-2 and HTN. He is in lisinopril and and synthroid. He also injects himself with testost erone I/M prep, twice a week. Pain has been contstant, dull, no radiation. He has nausea but no vomiting or diarrhea . Review of Systems - Review of Systems All systems: reviewed and no additional remarkable complaints except - Constitutional Constitutional: As Per HPI - EENT Eyes: absent: As Per HPI, Blind Spots, Blurred Vision, Change in Vision, Decre ased Night Vision, Diplopia, Discharge, Dry Eye, Exophthalmos, Floaters, Irritation, Itchy Eyes, Loss of Peripheral Vision, Pain, Photophobia, Requires Corrective Lenses, Sees Flashes, Spots in Vision, Tunnel Vision, Other Visual Disturbances, Loss of Vision, Other Ears: absent: As Per HPI, Decreased Hearing, Ear Discharge, Ear Pain, Tinnitus, Abnormal Hearing, Disequilibrium, Dizziness, Other Nose/Mouth/Throat: absent: As Per HPI, Epistaxis, Nasal Congestion, Nasal Discharge, Nasal Obstruction, Nasal Trauma, Nose Pain, Post Nasal Drip, Sinus P ain, Sinus Pressure, Bleeding Gums, Change in Voice, Dental Pain, Dry Mouth, Dysphagia, Halitosis, Hoarsness, Lip Swelling, Mouth Lesions, Mouth Pain, Odynophagia, Sore Throat, Throat Swelling, Tongue Swelling, Facial Pain, Neck Pain, Neck Mass, Other - Cardiovascular Cardiovascular: absent: As Per HPI, Acrocyanosis, Chest Pain, Chest Pain at Rest, Chest Pain with Activity, Claudication, Diaphoresis, Dyspnea, Dyspnea on Exertion, Edema, Irregular Heart Rhythm, Pain Radiating to Arm/Neck/Jaw, Leg Edema, Leg Ulcers, Lightheadedness, Orthopnea, Palpitations, Paroxysmal Nocturnal Dyspnea, Pedal Edema, Radiating Pain, Rapid Heart Rate, Slow Heart Rate, Syncope, Other - Respiratory Respiratory: absent: As Per HPI, Cough, Dyspnea, Hemoptysis, Dyspnea on Exertion, Wheezing, Snoring, Stridor, Pain on Inspiration, Chest Congestion, Excessive Mucous Production, Change in Mucous Color, Pain with Coughing, Other - Gastrointestinal Gastrointestinal: As Per HPI, Abdominal Pain - Genitourinary Genitourinary: absent: As Per HPI, Change in Urinary Stream, Difficulty Urinating, Dysuria, Flank Pain, Hematuria, Pyuria, Nocturia, Urinary Incontinen ce, Urinary Frequency, Urinary Hesitance, Urinary Urgency, Voiding Freq/Small Amts, Freq UTI, Hx Renal/Bladder Calculi, Hx /Renal Surgery, Bladder Distension, Other - Musculoskeletal Musculoskeletal: absent: As Per HPI, Abnormal Gait, Arthralgias, Atrophy, Back Pain, Deformity, Joint Swelling, Limited Range of Motion, Loss of Height, Muscle Cramps, Muscle Weakness, Myalgias, Neck Pain, Numbness, Radiating Pain into Limb, Stiffness, Tingling, Other - Integumentary Integumentary: absent: As Per HPI, Acne, Alopecia, Bleeding Lesions, Change in Hair, Change in Nails, Change in Pigmentation, Changing Lesions, Dry Skin, Erythema, Furuncle, Hirsutism, Lesions, New Lesions, Non-Healing Lesions, Photosensitivity, Pruritus, Rash, Skin Pain, Skin Ulcer, Sores, Striae, Swelling, Unusual Bruising, Wounds, Jaundice, Other - Neurological Neurological: absent: As Per HPI, Abnormal Gait, Abnormal Hearing, Abnormal Movements, Abnormal Speech, Behavioral Changes, Burning Sensations, Confusion, Convulsions, Disequilibrium, Dizziness, Numbness, Focal Weakness, Frequent Falls, Headaches, Lack of Coordination, Loss of Vision, Memory Loss, Paresthesias, Radicular Pain, Restless Legs, Sensory Deficit, Syncope, Tingling, Tremor, Vertigo, Weakness, Other Visual Disturbances, Other - Psychiatric Psychiatric: absent: As Per HPI, Abnormal Sleep Pattern, Anhedonia, Anxiety, Auditory Hallucinations, Behavioral Changes, Change in Appetite, Change in L ibido, Confusion, Depression, Difficulty Concentrating, Hallucinations, Homicidal Ideation, Hopelessness, Irritability, Memory Loss, Mood Swings, Panic Attacks, Paranoia, Suicidal Ideation, Visual Hallucinations, Tactile Hallucinations, Other - Endocrine Endocrine: absent: As Per HPI, Change in Body Appearance, Change in Libido, Cold Intolorance, Deepening of Voice, Excessive Sweating, Fatigue, Flushing, Heat Intolorance, Increase in Ring/Shoe/Hat Size, Palpitations, Polydipsia, Polyphagia, Polyuria, Other - Hematologic/Lymphatic Hematologic: absent: As Per HPI, Easy Bleeding, Easy Bruising, Lymphadenopathy, Other Past Patient History - Past Medical History & Family History Past Medical History?: Yes - Past Social History Smoking Status: Never Smoked - CARDIAC Hx Hypertension: Yes - PULMONARY Hx Asthma: Yes - RENAL Hx Chronic Kidney Disease: Yes - ENDOCRINE/METABOLIC Hx Hypothyroidism: Yes Other/Comment: takes testosterone replacement RX , I/M - HEMATOLOGICAL/ONCOLOGICAL Hx AIDS: No Hx Human Immunodeficiency Virus (HIV): No - MUSCULOSKELETAL/RHEUMATOLOGICAL Hx Falls: No - GASTROINTESTINAL Hx Gastrointestinal Disorders: No - GENITOURINARY/GYNECOLOGICAL Hx Genitourinary Disorders: No - PSYCHIATRIC Hx Psychophysiologic Disorder: No Hx Substance Use: No - SURGICAL HISTORY Hx Tonsillectomy: Yes Meds Allergies/Adverse Reactions: Allergies Allergy/AdvReac Type Severity Reaction Status Date / Time No Known Allergies Allergy Verified 08/06/18 03:21 - Medications Medications: Current Medications Albuterol/Ipratropium (Duoneb 3 Mg/0.5 Mg (3 Ml) Ud) 3 ml INH RQ6 [facility] Last Admin: 08/10/18 08:04 Dose: Not Given Amlodipine Besylate (Norvasc) 5 mg PO BID [facility] Last Admin: 08/10/18 09:24 Dose: 5 mg Cyclobenzaprine HCl (Flexeril) 10 mg PO Q8 [facility] Docusate Sodium (Colace) 200 mg PO DAILY [facility] Last Admin: 08/10/18 09:23 Dose: 200 mg Enoxaparin Sodium (Lovenox) 40 mg SC DAILY [facility]; Protocol Last Admin: 08/10/18 09:23 Dose: 40 mg Hydromorphone HCl (Dilaudid) 2 mg IVP Q4H PRN PRN Reason: Pain, severe (8-10) Last Admin: 08/10/18 08:10 Dose: 2 mg Lactated Ringer's (Lactated Ringer's) 1,000 mls @ 175 mls/hr IV .Q5H43M [facility] Last Admin: 08/09/18 20:09 Dose: 175 mls/hr Cefepime HCl 1 gm/ Sodium (Chloride) 100 mls @ 100 mls/hr IVPB Q12@0100,1300 [facility]; Protocol Last Admin: 08/10/18 00:06 Dose: 100 mls/hr Metronidazole (Flagyl 500mg/100ml Ns) 100 mls @ 100 mls/hr IVPB Q8@0500,1300,2100 [facility]; Protocol Last Admin: 08/10/18 12:09 Dose: 100 mls/hr Ketorolac Tromethamine (Toradol) 15 mg IVP Q6 [facility] Lactulose (Enulose) 20 gm PO Q12 [facility] Last Admin: 08/10/18 12:08 Dose: 20 gm Ondansetron HCl (Zofran Inj) 4 mg IVP Q6 PRN PRN Reason: Nausea/Vomiting Last Admin: 08/06/18 12:57 Dose: 4 mg Pantoprazole Sodium (Protonix Inj) 40 mg IVP DAILY [facility] Last Admin: 08/10/18 09:24 Dose: 40 mg Thyroid ([place] Thyroid) 30 mg PO DAILY [facility] Last Admin: 08/10/18 09:23 Dose: 30 mg Physical Exam - Constitutional Appears: Non-toxic, Chronically Ill - Head Exam Head Exam: NORMOCEPHALIC - Eye Exam Eye Exam: absent: Scleral icterus - ENT Exam ENT Exam: Mucous Membranes Dry - Neck Exam Neck exam: Negative for: Lymphadenopathy - Respiratory Exam Respiratory Exam: Decreased Breath Sounds - Cardiovascular Exam Cardiovascular Exam: REGULAR RHYTHM - GI/Abdominal Exam GI & Abdominal Exam: Diminished Bowel Sounds, Distended, Firm, Guarding, Soft, Tenderness. absent: Rebound, Rigid - Rectal Exam Rectal Exam: Deferred - Exam Exam: NORMAL INSPECTION - Extremities Exam Extremities exam: Negative for: pedal edema - Back Exam Back exam: absent: CVA tenderness (L), CVA tenderness (R) - Neurological Exam Neurological exam: Alert, CN II-XII Intact, Oriented x3, Reflexes Normal - Psychiatric Exam Psychiatric exam: Normal Mood - Skin Skin Exam: Dry Results - Vital Signs Recent Vital Signs: Last Vital Signs Temp 98.2 F 08/10/18 08:23 Pulse 90 08/10/18 09:24 Resp 20 08/10/18 08:23 BP 156/98 H 08/10/18 09:24 Pulse Ox 94 L 08/10/18 08:23 - Labs Result Diagrams: 08/10/18 08:32 08/10/18 08:32 Labs: Laboratory Results - last 24 hr 08/10/18 08/10/18 08:32 08:32 WBC 13.2 H RBC 4.56 Hgb 13.7 Hct 41.3 MCV 90.6 MCH 30.0 MCHC 33.1 RDW 13.6 Plt Count 223 MPV 9.6 Neut % (Auto) 82.8 H Lymph % (Auto) 5.1 L [place] % (Auto) 9.9 Eos % (Auto) 2.0 Baso % (Auto) 0.2 Neut # (Auto) 11.0 H Lymph # (Auto) 0.7 L [place] # (Auto) 1.3 H Eos # (Auto) 0.3 Baso # (Auto) 0.0 Neutrophils % (Manual) 79 H Band Neutrophils % 1 Lymphocytes % (Manual) 7 L Reactive Lymphs % 1 H Monocytes % (Manual) 10 Eosinophils % (Manual) 2 Platelet Estimate Normal RBC Morphology Normal Sodium 136 Potassium 3.3 L Chloride 101 Carbon Dioxide 29 Anion Gap 9 L BUN 24 H Creatinine 1.0 Est GFR ( Amer) > 60 Est GFR (Non-Af Amer) > 60 Random Glucose 103 Calcium 8.0 L Total Bilirubin 1.0 AST 46 ALT 34 Alkaline Phosphatase 40 Total Protein 5.6 L Albumin 2.9 L Globulin 2.7 Albumin/Globulin Ratio 1.1 Lipase 67 Assessment & Plan (1) Leukocytosis, unspecified Status: Acute (2) Pancreatitis Status: Acute - Assessment and Plan (Free Text) Assessment: pancreatitis with sirs responding to empiric IV antibiotics cultures so far neg no evidence of peritonitis GI and surgery on board
--- NOTE | 2018-08-10 15:22 | RAD ---
Date of service: 08/10/2018 PROCEDURE: Radiographs of the chest and abdomen (obstructive series) HISTORY: abdominal distension COMPARISON: Comparison made with chest radiograph and CT scan abdomen pelvis both dated 08/06/2018 TECHNIQUE: AP radiograph of the chest, with upright and supine radiographs of the abdomen. FINDINGS: CHEST: Lungs: There appears to be localized segmental-subsegmental atelectasis right medial lung base likely representing middle lobe. Suspect minimal left basilar atelectasis. Cardiovascular: Heart appears mildly enlarged. No pulmonary vascular congestion. Minor aortic atherosclerotic calcified plaque Pleura: No pleural fluid. No pneumothorax. Other findings: None. ABDOMEN AND PELVIS: Multiple mildly distended air-filled loops of small bowel are present however oral contrast material presumably on given during the prior CT scan of the abdomen pelvis opacifies the cecum and ascending colon precluding complete obstruction.. Findings likely represent a generalized ileus No evidence of free intraperitoneal air. IMPRESSION: Segmental and/or subsegmental atelectasis in the region of the right middle lobe. Findings consistent with generalized ileus. No evidence of acute mechanical bowel obstruction as detailed above.
[2018-08-10] MEDS: Albuterol-Ipratrop 3 mg / 0.5 (3 ml) UD INH PRN (15:44)
[2018-08-10] MEDS ORDERED: Simethicone 80 mg Chewtab PO PRN (16:44)
--- NOTE | 2018-08-10 17:20 | CP.PCM.PN ---
Subjective - Date & Time of Evaluation Date of Evaluation: 08/10/18 Time of Evaluation: 11:00 - Subjective Subjective: 57 y/o m was seen and examined by bedside with Dr Mann. Pt complains of severe low back pain, abdominal discomfort and distension. Pt reports having a very small bowel movement this morning. Pt afebrile, tolerating PO with NO acute ev ents overnight. Objective - Vital Signs/Intake and Output Vital Signs (last 24 hours): Temp Pulse Resp BP Pulse Ox 98.8 F 66 18 158/86 H 93 L 08/10/18 16:36 08/10/18 16:36 08/10/18 16:36 08/10/18 16:36 08/10/18 16:36 - Medications Medications: Current Medications Albuterol/Ipratropium (Duoneb 3 Mg/0.5 Mg (3 Ml) Ud) 3 ml INH RQ6 PRN PRN Reason: Shortness of Breath Last Admin: 08/10/18 15:44 Dose: 3 ml Amlodipine Besylate (Norvasc) 5 mg PO BID [facility] Last Admin: 08/10/18 09:24 Dose: 5 mg Cyclobenzaprine HCl (Flexeril) 10 mg PO Q8 [facility] Last Admin: 08/10/18 13:30 Dose: 10 mg Docusate Sodium (Colace) 200 mg PO DAILY [facility] Last Admin: 08/10/18 09:23 Dose: 200 mg Enoxaparin Sodium (Lovenox) 40 mg SC DAILY [facility]; Protocol Last Admin: 08/10/18 09:23 Dose: 40 mg Furosemide (Lasix) 20 mg PO DAILY [facility] Lactated Ringer's (Lactated Ringer's) 1,000 mls @ 175 mls/hr IV .Q5H43M [facility] Last Admin: 08/09/18 20:09 Dose: 175 mls/hr Cefepime HCl 1 gm/ Sodium (Chloride) 100 mls @ 100 mls/hr IVPB Q12@0100,1300 [facility]; Protocol Last Admin: 08/10/18 15:31 Dose: 100 mls/hr Metronidazole (Flagyl 500mg/100ml Ns) 100 mls @ 100 mls/hr IVPB Q8@0500,1300,2100 [facility]; Protocol Last Admin: 08/10/18 12:09 Dose: 100 mls/hr Ketorolac Tromethamine (Toradol) 15 mg IVP Q6 [facility] Last Admin: 08/10/18 13:30 Dose: 15 mg Lactulose (Enulose) 20 gm PO Q12 [facility] Last Admin: 08/10/18 12:08 Dose: 20 gm Ondansetron HCl (Zofran Inj) 4 mg IVP Q6 PRN PRN Reason: Nausea/Vomiting Last Admin: 08/06/18 12:57 Dose: 4 mg Pantoprazole Sodium (Protonix Inj) 40 mg IVP DAILY [facility] Last Admin: 08/10/18 09:24 Dose: 40 mg Simethicone (Mylicon Chew Tab) 80 mg PO Q8 PRN PRN Reason: Flatulence Last Admin: 08/10/18 16:59 Dose: 80 mg Thyroid ([place] Thyroid) 30 mg PO DAILY [facility] Last Admin: 08/10/18 09:23 Dose: 30 mg - Labs Labs: 08/10/18 08:32 08/10/18 08:32 PT 11.1 Seconds (9.8-13.1) 08/06/18 03:30 INR 1.0 08/06/18 03:30 APTT 30.6 Seconds (25.6-37.1) 08/06/18 03:30 - Constitutional Appears: No Acute Distress - Head Exam Head Exam: NORMAL INSPECTION - Eye Exam Eye Exam: EOMI, Normal appearance - Neck Exam Neck Exam: Full ROM. absent: Meningismus - Respiratory Exam Respiratory Exam: Clear to Ausculation Bilateral, NORMAL BREATHING PATTERN - Cardiovascular Exam Cardiovascular Exam: REGULAR RHYTHM, +S1, +S2 - GI/Abdominal Exam GI & Abdominal Exam: Distended, Soft, Tenderness (mild, diffuse). absent: Guarding, Mass, Rebound - Extremities Exam Extremities Exam: Normal Inspection. absent: Calf Tenderness - Back Exam Back Exam: absent: CVA tenderness (L), CVA tenderness (R) - Neurological Exam Neurological Exam: Alert, Awake, Oriented x3 Assessment and Plan - Assessment and Plan (Free Text) Assessment: 57 y/o M with a PMHx of HTN, hypothyroidism, asthma and CKD-2 admitted for evaluation of pancreatitis. PLAN --Lipase is now WNL --WBC trended down --XR of abdomen with ileus. --After discussion with pt, will try to avoid opioids. --IV Toradol and PO Flexeril on scheduled dosis. --C/w lactulose and will order enema NV. --GI on board, DR Bynum. --Continue management as ordered.
[2018-08-10] MEDS ORDERED: Diatriz Meglumine/Diatriz Sod 30 ML BOTTLE PO ONE (18:14)
[2018-08-10] MEDS ORDERED: Iohexol 240 (50 ml) PO ONE (18:14)
--- NOTE | 2018-08-10 18:23 | CP.PCM.PN ---
Subjective - Date & Time of Evaluation Date of Evaluation: 08/10/18 Time of Evaluation: 18:23 - Subjective Subjective: Patient states he has been requiring less pain meds though is still distended. Objective - Vital Signs/Intake and Output Vital Signs (last 24 hours): Temp Pulse Resp BP Pulse Ox 98.8 F 66 18 158/86 H 93 L 08/10/18 16:36 08/10/18 16:36 08/10/18 16:36 08/10/18 16:36 08/10/18 16:36 - Medications Medications: Current Medications Albuterol/Ipratropium (Duoneb 3 Mg/0.5 Mg (3 Ml) Ud) 3 ml INH RQ6 PRN PRN Reason: Shortness of Breath Last Admin: 08/10/18 15:44 Dose: 3 ml Amlodipine Besylate (Norvasc) 5 mg PO BID [facility] Last Admin: 08/10/18 09:24 Dose: 5 mg Cyclobenzaprine HCl (Flexeril) 10 mg PO Q8 [facility] Last Admin: 08/10/18 13:30 Dose: 10 mg Docusate Sodium (Colace) 200 mg PO DAILY [facility] Last Admin: 08/10/18 09:23 Dose: 200 mg Enoxaparin Sodium (Lovenox) 40 mg SC DAILY [facility]; Protocol Last Admin: 08/10/18 09:23 Dose: 40 mg Furosemide (Lasix) 20 mg PO DAILY [facility] Lactated Ringer's (Lactated Ringer's) 1,000 mls @ 175 mls/hr IV .Q5H43M [facility] Last Admin: 08/09/18 20:09 Dose: 175 mls/hr Cefepime HCl 1 gm/ Sodium (Chloride) 100 mls @ 100 mls/hr IVPB Q12@0100,1300 [facility]; Protocol Last Admin: 08/10/18 15:31 Dose: 100 mls/hr Metronidazole (Flagyl 500mg/100ml Ns) 100 mls @ 100 mls/hr IVPB Q8@0 500,1300,2100 [facility]; Protocol Last Admin: 08/10/18 12:09 Dose: 100 mls/hr Ketorolac Tromethamine (Toradol) 15 mg IVP Q6 [facility] Last Admin: 08/10/18 18:08 Dose: 15 mg Lactulose (Enulose) 20 gm PO Q12 [facility] Last Admin: 08/10/18 12:08 Dose: 20 gm Ondansetron HCl (Zofran Inj) 4 mg IVP Q6 PRN PRN Reason: Nausea/Vomiting Last Admin: 08/06/18 12:57 Dose: 4 mg Pantoprazole Sodium (Protonix Inj) 40 mg IVP DAILY [facility] Last Admin: 08/10/18 09:24 Dose: 40 mg Simethicone (Mylicon Chew Tab) 80 mg PO Q8 PRN PRN Reason: Flatulence Last Admin: 08/10/18 16:59 Dose: 80 mg Thyroid ([place] Thyroid) 30 mg PO DAILY [facility] Last Admin: 08/10/18 09:23 Dose: 30 mg - Labs Labs: 08/10/18 08:32 08/10/18 08:32 PT 11.1 Seconds (9.8-13.1) 08/06/18 03:30 INR 1.0 08/06/18 03:30 APTT 30.6 Seconds (25.6-37.1) 08/06/18 03:30 - Head Exam Head Exam: ATRAUMATIC - Eye Exam Eye Exam: Normal appearance - ENT Exam ENT Exam: Mucous Membranes Moist - Respiratory Exam Respiratory Exam: Clear to Ausculation Bilateral - Cardiovascular Exam Cardiovascular Exam: REGULAR RHYTHM - GI/Abdominal Exam GI & Abdominal Exam: Distended, Soft, Normal Bowel Sounds Assessment and Plan (1) Pancreatitis Assessment & Plan: Pain improving and WBC coming down. Patient to receive nonopiate analgesics. Diet advanced to bland low fat diet. CT in the AM to r/o pseodocyst or fluid collection. Possible d/c soon Status: Acute
[2018-08-10] MEDS: Lactated Ringer's 1,000 ML IV SCH (21:54)
[2018-08-11] MEDS: Cefepime 1 GM in Sodium Chloride 0.9% 100 ML IVPB SCH (00:26)
[2018-08-11] MEDS: Lactated Ringer's 1,000 ML IV SCH ×2 (00:42→06:14)
[2018-08-11] MEDS: metroNIDAZOLE 500mg/100ml NS 100 ML IVPB SCH (06:00)
[2018-08-11] MEDS: Albuterol-Ipratrop 3 mg / 0.5 (3 ml) UD INH PRN (07:27)
[2018-08-11 08:30] LABS: BASO # 0.1 K/uL (0.0-0.2); BASO % 0.6 % (0.0-2.0); EOS # 0.5 K/uL (0.0-0.7); EOS % 4.4 % (0.0-4.0); HEMOGLOBIN 13.6 g/dL (12.0-18.0); LYMPH # 0.9 K/uL (1.0-4.3); MEAN CELL VOLUME 89.3 fl (80.0-94.0); MEAN CORPUSCULAR HEMOGLOBIN 29.8 pg (27.0-31.0); MEAN CORPUSCULAR HGB CONC 33.4 g/dL (33.0-37.0); MEAN PLATELET VOLUME 10.1 fl (7.2-11.7); MONO # 1.2 K/uL (0.0-0.8); MONO % 10.9 % (0.0-10.0); NEUT # 8.7 K/uL (1.8-7.0); NEUT % 76.1 % (50.0-75.0); RBC 4.57 Mil/uL (4.40-5.90); RED CELL DISTRIBUTION WIDTH 13.6 % (11.5-14.5); WHITE BLOOD COUNT 11.4 K/uL (4.8-10.8)
[2018-08-11 08:34] VITALS: PULSE 65; RESP 20; TEMP 98.1; O2SAT 99
[2018-08-11 08:36] LABS: ALBUMIN 2.8 g/dL (3.5-5.0); ALT/SGPT 34 U/L (21-72); AST/SGOT 46 U/L (17-59); BLOOD UREA NITROGEN 24 mg/dl (9-20); GFR NON-AFRICAN AMERICAN > 60
--- NOTE | 2018-08-11 10:04 | CP.PCM.PN ---
Subjective - Date & Time of Evaluation Date of Evaluation: 08/11/18 Time of Evaluation: 10:01 - Subjective Subjective: GI Note for Dr. Bynum 57M seen and examined at bedside. Patient states he feels much better, denies pain, he is tolerated diet, denies nausea or vomiting. Objective - Vital Signs/Intake and Output Vital Signs (last 24 hours): Temp Pulse Resp BP Pulse Ox 98.1 F 65 20 158/93 H 99 08/11/18 08:33 08/11/18 08:33 08/11/18 08:33 08/11/18 08:33 08/11/18 08:33 - Medications Medications: Current Medications Albuterol/Ipratropium (Duoneb 3 Mg/0.5 Mg (3 Ml) Ud) 3 ml INH RQ6 PRN PRN Reason: Shortness of Breath Last Admin: 08/11/18 07:27 Dose: 3 ml Amlodipine Besylate (Norvasc) 5 mg PO BID [facility] Last Admin: 08/10/18 18:58 Dose: 5 mg Cyclobenzaprine HCl (Flexeril) 10 mg PO Q8 [facility] Last Admin: 08/11/18 00:25 Dose: 10 mg Docusate Sodium (Colace) 200 mg PO DAILY [facility] Last Admin: 08/10/18 09:23 Dose: 200 mg Enoxaparin Sodium (Lovenox) 40 mg SC DAILY [facility]; Protocol Last Admin: 08/10/18 09:23 Dose: 40 mg Furosemide (Lasix) 20 mg PO DAILY [facility] Lactated Ringer's (Lactated Ringer's) 1,000 mls @ 175 mls/hr IV .Q5H43M [facility] Last Admin: 08/11/18 06:14 Dose: 175 mls/hr Cefepime HCl 1 gm/ Sodium (Chloride) 100 mls @ 100 mls/hr IVPB Q12@0100,1300 [facility]; Protocol Last Admin: 08/11/18 00:26 Dose: 100 mls/hr Metronidazole (Flagyl 500mg/100ml Ns) 100 mls @ 100 mls/hr IVPB Q8@0500,1300,2100 [facility]; Protocol Last Admin: 08/11/18 06:00 Dose: 100 mls/hr Ketorolac Tromethamine (Toradol) 15 mg IVP 0000,0600,1200,1800 [facility] Last Admin: 08/11/18 06:12 Dose: 15 mg Lactulose (Enulose) 20 gm PO Q12 [facility] Last Admin: 08/10/18 21:54 Dose: 20 gm Ondansetron HCl (Zofran Inj) 4 mg IVP Q6 PRN PRN Reason: Nausea/Vomiting Last Admin: 08/06/18 12:57 Dose: 4 mg Pantoprazole Sodium (Protonix Inj) 40 mg IVP DAILY [facility] Last Admin: 08/10/18 09:24 Dose: 40 mg Simethicone (Mylicon Chew Tab) 80 mg PO Q8 PRN PRN Reason: Flatulence Last Admin: 08/10/18 16:59 Dose: 80 mg Thyroid ([place] Thyroid) 30 mg PO DAILY [facility] Last Admin: 08/10/18 09:23 Dose: 30 mg - Labs Labs: 08/11/18 08:20 08/11/18 08:20 PT 11.1 Seconds (9.8-13.1) 08/06/18 03:30 INR 1.0 08/06/18 03:30 APTT 30.6 Seconds (25.6-37.1) 08/06/18 03:30 - Constitutional Appears: Non-toxic, No Acute Distress - Respiratory Exam Respiratory Exam: Clear to Ausculation Bilateral, NORMAL BREATHING PATTERN - Cardiovascular Exam Cardiovascular Exam: REGULAR RHYTHM, +S1, +S2 - GI/Abdominal Exam GI & Abdominal Exam: Soft. absent: Distended, Firm, Guarding, Rigid, Tenderness, Rebound Assessment and Plan - Assessment and Plan (Free Text) Assessment: 57M with pancreatitis Plan: - plan for CT abd/pelvic to r/o cysts - continue to advance diet as tolerated - dc pending CT Further recs discussed with Dr. Misa Cabrera, PGY3
[2018-08-11] MEDS: THYROID 30 MG TAB PO SCH ×2 (11:00→11:15)
[2018-08-11] MEDS: Enoxaparin 40 mg Syringe SC SCH (11:24)
--- NOTE | 2018-08-11 13:11 | CT ---
Date of service: 08/11/2018 PROCEDURE: CT Abdomen and Pelvis without intravenous contrast HISTORY: abdominal distention. R/o pseudocyst/ ascites COMPARISON: 08/06/2018 TECHNIQUE: Without contrast.. Contrast dose: 0 Radiation dose: Total exam DLP = 737.54 mGy-cm. This CT exam was performed using one or more of the following dose reduction techniques: Automated exposure control, adjustment of the mA and/or kV according to patient size, and/or use of iterative reconstruction technique. FINDINGS: LOWER THORAX: Bilateral lower lobe subsegmental atelectasis. Minimal bilateral pleural effusion. LIVER: Normal size, contour and attenuation. No mass. No biliary dilatation. GALLBLADDER AND BILE DUCTS: High attenuation material is seen within the gallbladder lumen consistent with vicarious excretion of previously administered intravenous contrast material. No mural thickening. No stones identified. PANCREAS: Peripancreatic inflammatory change is again identified. There is no definite peripancreatic fluid collection identified. There is irregular soft tissue density material in the rear to the 3rd portion of the duodenum and pancreatic head measuring approximately 3.9 cm in diameter. This was not seen on prior CT examination. It measures approximately 37 Hounsfield units in attenuation. This may represent blood or pancreatic exudate. Neoplasm is not suspected given the absence of any such mass on recent prior CT examination of 08/06/2018. No pancreatic ductal dilatation. No pancreatic mass identified. SPLEEN: Unremarkable. ADRENALS: Unremarkable. No mass. KIDNEYS AND URETERS: Two very small nonobstructing calculi are seen in the lower pole left kidney, approximately 3 mm in diameter each. Few left parapelvic renal cysts. No hydronephrosis. No other renal mass. VASCULATURE: Unremarkable. No aortic aneurysm. No aortic atherosclerotic calcification or mural plaque present. BOWEL: Unremarkable. No obstruction. No gross mural thickening. APPENDIX: Not identified. No secondary findings to suggest acute appendicitis. PERITONEUM: Unremarkable. No free fluid. No free air. LYMPH NODES: Unremarkable. No enlarged lymph nodes. BLADDER: Unremarkable. REPRODUCTIVE: Normal prostate BONES: No acute fracture. OTHER FINDINGS: None. IMPRESSION: Findings consistent with acute pancreatitis. No pancreatic mass or discrete peripancreatic fluid collection. Abnormal soft tissue density is seen inferior to the pancreatic head and 3rd portion of the duodenum. Uncertain significance. This represents interval change from examination of 08/06/2018. Possible blood and/or pancreatic exudate. Two very small nonobstructing left renal calculi. No other acute abnormality.
[2018-08-11] MEDS ORDERED: Potassium Chloride 20 mEq ER Tab PO ONE (13:35)
--- NOTE | 2018-08-11 14:02 | CP.PCM.PCO ---
Assessment/Plan - Assessment/Plan Assessment (Free Text): Pt stable, abd softer and less distended, tolerating diet. Labs and CT scan report reviewed with Dr. Bynum. Per Dr. Bynum, d/c all antibiotics, pt can be discharged home, pt to f/u with PMD for repeat CT scan. Pt aware of plan. Patient seen and cleared for d/c home by Dr. Mann.
[2018-08-11 14:33] VITALS: BP 170/89
--- NOTE | 2018-08-11 16:41 | CP.PCM.DIS ---
Provider - Provider Date of Admission: 08/06/18 08:11 Attending physician: Parviz Willis MD Consults: ID: Dr Elliott Pain management: Dr Carbone GI: Dr Bynum Time Spent in preparation of Discharge (in minutes): 30 Diagnosis - Discharge Diagnosis (1) Pancreatitis Status: Resolved Hospital Course - Lab Results Lab Results: Micro Results 08/09/18 18:13 Urine,Clean Catch Urine Culture - Final No Growth (<1,000 CFU/ML) 08/08/18 21:41 Naris MRSA Culture (Admit) - Final MRSA NOT DETECTED Most Recent Lab Values WBC 11.4 K/uL (4.8-10.8) H 08/11/18 08:20 RBC 4.57 Mil/uL (4.40-5.90) 08/11/18 08:20 Hgb 13.6 g/dL (12.0-18.0) 08/11/18 08:20 Hct 40.8 % (35.0-51.0) 08/11/18 08:20 MCV 89.3 fl (80.0-94.0) 08/11/18 08:20 MCH 29.8 pg (27.0-31.0) 08/11/18 08:20 MCHC 33.4 g/dL (33.0-37.0) 08/11/18 08:20 RDW 13.6 % (11.5-14.5) 08/11/18 08:20 Plt Count 221 K/uL (130-400) 08/11/18 08:20 MPV 10.1 fl (7.2-11.7) 08/11/18 08:20 Neut % (Auto) 76.1 % (50.0-75.0) H 08/11/18 08:20 Lymph % (Auto) 8.0 % (20.0-40.0) L 08/11/18 08:20 Elmore % (Auto) 10.9 % (0.0-10.0) H 08/11/18 08:20 Eos % (Auto) 4.4 % (0.0-4.0) H 08/11/18 08:20 Baso % (Auto) 0.6 % (0.0-2.0) 08/11/18 08:20 Neut # (Auto) 8.7 K/uL (1.8-7.0) H 08/11/18 08:20 Lymph # (Auto) 0.9 K/uL (1.0-4.3) L 08/11/18 08:20 Elmore # (Auto) 1.2 K/uL (0.0-0.8) H 08/11/18 08:20 Eos # (Auto) 0.5 K/uL (0.0-0.7) 08/11/18 08:20 Baso # (Auto) 0.1 K/uL (0.0-0.2) 08/11/18 08:20 Neutrophils % (Manual) 79 % (42-75) H 08/10/18 08:32 Band Neutrophils % 1 % (0-2) 08/10/18 08:32 Lymphocytes % (Manual) 7 % (20-50) L 08/10/18 08:32 Reactive Lymphs % 1 % (0-0) H 08/10/18 08:32 Monocytes % (Manual) 10 % (0-10) 08/10/18 08:32 Eosinophils % (Manual) 2 % (0-7) 08/10/18 08:32 Platelet Estimate Normal (NORMAL) 08/10/18 08:32 Large Platelets Present 08/07/18 05:30 RBC Morphology Normal (NORMAL) 08/10/18 08:32 PT 11.1 Seconds (9.8-13.1) 08/06/18 03:30 INR 1.0 08/06/18 03:30 APTT 30.6 Seconds (25.6-37.1) 08/06/18 03:30 Sodium 137 mmol/l (132-148) 08/11/18 08:20 Potassium 3.4 MMOL/L (3.6-5.0) L 08/11/18 08:20 Chloride 102 mmol/L (98-107) 08/11/18 08:20 Carbon Dioxide 29 mmol/L (22-30) 08/11/18 08:20 Anion Gap 9 (10-20) L 08/11/18 08:20 BUN 24 mg/dl (9-20) H 08/11/18 08:20 Creatinine 1.2 mg/dl (0.8-1.5) 08/11/18 08:20 Est GFR ( Amer) > 60 08/11/18 08:20 Est GFR (Non-Af Amer) > 60 08/11/18 08:20 POC Glucose (mg/dL) 98 mg/dL (65-110) 08/09/18 07:56 Random Glucose 89 mg/dL (75-110) 08/11/18 08:20 Lactic Acid 1.8 MMOL/L (0.7-2.1) 08/06/18 03:35 Calcium 8.0 mg/dL (8.4-10.2) L 08/11/18 08:20 Total Bilirubin 1.0 mg/dl (0.2-1.3) 08/11/18 08:20 AST 46 U/L (17-59) 08/11/18 08:20 ALT 34 U/L (21-72) 08/11/18 08:20 Alkaline Phosphatase 41 U/L (38-126) 08/11/18 08:20 Troponin I < 0.0120 ng/mL (0.00-0.120) 08/06/18 03:30 Total Protein 5.5 G/DL (6.3-8.2) L 08/11/18 08:20 Albumin 2.8 g/dL (3.5-5.0) L 08/11/18 08:20 Globulin 2.7 gm/dL (2.2-3.9) 08/11/18 08:20 Albumin/Globulin Ratio 1.0 (1.0-2.1) 08/11/18 08:20 Triglycerides 38 mg/DL (0-149) 08/07/18 05:30 Cholesterol 157 mg/dL (0-199) 08/07/18 05:30 LDL Cholesterol Direct 121 mg/dL (0-129) 08/07/18 05:30 HDL Cholesterol 43 MG/DL (30-70) 08/07/18 05:30 Amylase 646 U/L (30-110) H 08/07/18 05:30 Lipase 67 U/L (23-300) 08/10/18 08:32 TSH 3rd Generation 1.01 mIU/ML (0.46-4.68) 08/07/18 05:30 Urine Opiates Screen Positive (NEGATIVE) H 08/06/18 09:04 Urine Methadone Screen Negative (NEGATIVE) 08/06/18 09:04 Ur Barbiturates Screen Negative (NEGATIVE) 08/06/18 09:04 Ur Phencyclidine Scrn Negative (NEGATIVE) 08/06/18 09:04 Ur Amphetamines Screen Negative (NEGATIVE) 08/06/18 09:04 U Benzodiazepines Scrn Negative (NEGATIVE) 08/06/18 09:04 U Oth Cocaine Metabols Negative (NEGATIVE) 08/06/18 09:04 U Cannabinoids Screen Negative (NEGATIVE) 08/06/18 09:04 Alcohol, Quantitative < 10 mg/dl (0-10) 08/06/18 03:30 - Hospital Course Hospital Course: 57 y/o M with a PMHx of HTN, hypothyroidism, asthma and CKD-2 admitted for evaluation of pancreatitis. Pt was conservately treated. After lipase became normal, hospitalization was complicated by severe low back pain adn abdominal distension. Obstructuve X-ray studies were showing ileus and constipation. Opioid analgesics were stopped yesterday, IV Toradol and Flexeril started yesterday as pain management with good pain control. Lacyulose and enema were given which improved abdominal pain. Pt stable, abdomen softer and less distended on examiniation. Pt afebrile and tolerating diet. Labs and CT scan report reviewed with Dr. Bynum. Per Dr. Bynum, d/c all antibiotics, pt can be discharged home, pt to f/u with PMD for repeat CT scan. Pt aware of plan. Patient seen and cleared for d/c home by Dr. Mann. - Date & Time of H&P Date of H&P: 08/06/18 Time of H&P: 20:31 Discharge Exam - Head Exam Head Exam: ATRAUMATIC - Additional Findings Additional findings: - Constitutional Appears: No Acute Distress - Head Exam Head Exam: NORMAL INSPECTION - Eye Exam Eye Exam: EOMI, Normal appearance - Neck Exam Neck Exam: Full ROM. absent: Meningismus - Respiratory Exam Respiratory Exam: Clear to Ausculation Bilateral, NORMAL BREATHING PATTERN - Cardiovascular Exam Cardiovascular Exam: REGULAR RHYTHM, +S1, +S2 - GI/Abdominal Exam GI & Abdominal Exam: Distended (remarkably improved from yesterday). Soft, no tenderness. absent: Guarding, Mass, Rebound - Extremities Exam Extremities Exam: Normal Inspection. absent: Calf Tenderness - Back Exam Back Exam: absent: CVA tenderness (L), CVA tenderness (R) - Neurological Exam Neurological Exam: Alert, Awake, Oriented x3 Discharge Plan - Discharge Medications Prescriptions: amLODIPine [Norvasc] 5 mg PO BID #60 tab - Follow Up Plan Condition: GUARDED Disposition: HOME/ ROUTINE Instructions: Pancreatitis (DC) Additional Instructions: follow up with primary MD 1 week Referrals: Iza Carbone MD [Staff Provider] - Moses Bynum MD [Staff Provider] -
== END 2018-08-11 16:15 | disposition home or self-care (01) | DRG 439 ==
LOC: H.ER 02:12 → H.ERHOLD 08:11 → H.ICU/CCU 10:18 → H.MEDSURG1 08-08 20:41
PROVIDERS: ADMIT Family Medicine; ATTEND Family Medicine
DX: K85.90 Acute pancreatitis without necrosis or infection, unspecified (principal); R65.10 Systemic inflammatory response syndrome (SIRS) of non-infectious origin without acute organ dysfunction; N17.9 Acute kidney failure, unspecified; K56.7 Ileus, unspecified; N20.0 Calculus of kidney; J45.909 Unspecified asthma, uncomplicated; E03.9 Hypothyroidism, unspecified; G89.29 Other chronic pain; I12.9 Hypertensive chronic kidney disease with stage 1 through stage 4 chronic kidney disease, or unspecified chronic kidney disease; K59.00 Constipation, unspecified; N18.2 Chronic kidney disease, stage 2 (mild)